=== PATIENT | female | born 1970 | race American Indian/Alaskan Native ===

== ENCOUNTER → 2016-09-08 | Outpatient (CLI) | payer OTHER ==
--- NOTE | 2016-09-08 13:52 | CR ---
EXAMINATION: Right ankle HISTORY: Hardware COMPARISON: 05/21/2016 TECHNIQUE: 3 views FINDINGS/IMPRESSION: There is stable screw and plate hardware fixation of the distal fibula with 2 s crews fixating the medial malleolus. Partially visualized intramedullary doris hardware is noted withi n the tibia. Overall position and alignment appear unchanged. The remaining osseous structures and j oint spaces appear preserved.
--- NOTE | 2016-09-08 13:53 | CR ---
EXAMINATION: Right tibia and fibula HISTORY: Fracture COMPARISON: 05/21/2016 TECHNIQUE: 2 views FINDINGS/IMPRESSION: There is an intramedullary doris noted fixating a well-healed tibial fracture. An kle hardware is again demonstrated, unchanged. The remaining osseous structures and joint spaces gracie ear normal.
== END ==
LOC: MW.CHORTHO 07:51
PROVIDERS: ATTEND Orthopaedic Surgery
DX: S82.202A Unspecified fracture of shaft of left tibia, initial encounter for closed fracture (principal); Z96.7 Presence of other bone and tendon implants; Z87.81 Personal history of (healed) traumatic fracture
CPT/HCPCS: 73590-26-RT; 73590-RT; 73610-26-RT; 73610-RT

== ENCOUNTER 2017-04-15 06:29 | Day surgery (SDC) | payer OTHER ==
[~2017-04-15 06:29] MED LIST: Lactated Ringers 1,000 ML IV SCH
[2017-04-15] MEDS ORDERED: Midazolam 1 MG/ML 2 ML SDV ONE (06:59)
[2017-04-15] MEDS ORDERED: Propofol 200 MG/20 ML SDV ONE (06:59)
[2017-04-15] MEDS ORDERED: fentaNYL 100 MCG/2 ML SDV ONE ×2 (06:59→08:44)
[2017-04-15] MEDS ORDERED: Ondansetron 4 MG/2 ML SDV ONE (07:01)
[2017-04-15] MEDS ORDERED: Dexamethasone 4 MG/ML 5 ML MDV ONE (07:01)
[2017-04-15] MEDS ORDERED: Bupivacaine 0.25% 10 ML SDV ONE (07:20)
--- NOTE | 2017-04-15 07:56 | PCM.PREANE ---
Preanesthetic Assessment - Anesthesia/Transfusion/Family Hx Anesthesia History: Prior Anesthesia Without Reaction Family History of Anesthesia Reaction: No Transfusion History: No Prior Transfusion(s) - Review of Systems General: Other (pain in area of hardware removal) Pulmonary: No Symptoms Cardiovascular: Other (HTN; hyperlipidemia) Gastrointestinal: No Symptoms Neurological: Other (painn in right leg) Other: Reports: None - Physical Assessment NPO Status Date: 04/14/17 NPO Status Time: 23:00 O2 Sat by Pulse Oximetry: 96 Respiratory Rate: 16 Vital Signs: Last Vital Signs Temp 97.5 F 04/15/17 07:05 Pulse 77 04/15/17 07:05 Resp 16 04/15/17 07:05 BP 123/82 04/15/17 07:05 Pulse Ox 96 04/15/17 07:05 Height: 4 ft 10 in Weight: 115 lb ASA Class: 2 Mental Status: Alert & Oriented x3 Airway Class: Mallampati = 1 Dentition: Reports: Normal Dentition Thyro-Mental Finger Breadths: 3 Mouth Opening Finger Breadths: 3 ROM/Head Extension: Full Lungs: Clear to Auscultation, Normal Respiratory Effort Cardiovascular: Regular Rate, Regular Rhythm, No Murmurs - Allergies Allergies/Adverse Reactions: Allergies Allergy/AdvReac Type Severity Reaction Status Date / Time No Known Allergies Allergy Verified 04/13/17 14:06 - Blood Blood Available: No Product(s) Available: None - Anesthesia Plan Pre-Op Medication Ordered: None - Acknowledgements Anesthesia Type Planned: General Anesthesia (LMA) Pt an Appropriate Candidate for the Planned Anesthesia: Yes Alternatives and Risks of Anesthesia Discussed w Pt/Guardian: Yes Pt/Guardian Understands and Agrees with Anesthesia Plan: Yes PreAnesthesia Questionnaire HEENT History: Reports: None Other HEENT History: wears glasses, has 3 upper dental implants Cardiovascular History: Reports: High Cholesterol, Hypertension Respiratory History: Reports: None Gastrointestinal History: Reports: None Other Genitourinary History: kidney infection [employer]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: Musculoskeletal History: Reports: Fracture Other Musculoskeletal History: left arm Neurological History: Reports: None Psychiatric History: Reports: None Endocrine/Metabolic History: Reports: None Hematologic History: Reports: None Immunologic History: Reports: None Oncologic (Cancer) History: Reports: None Dermatologic History: Reports: None - Infectious Disease History Infectious Disease History: Reports: None - Past Surgical History Head Surgeries/Procedures: Reports: None HEENT Surgical History: Reports: Tonsillectomy GI Surgical History: Reports: Appendectomy, Cholecystectomy Other GI Surgeries/Procedures: colon resection for bowel obstruction Female Surgical History: Reports: Section, Hysterectomy Other Female Surgeries/Procedures: hx multiple laparoscopies; hysterectomy 2008 Musculoskeletal Surgical History: Reports: ORIF Other Musculoskeletal Surgeries/Procedures:: right ankle (has hardware) - SUBSTANCE USE Smoking Status *Q: Never Smoker Tobacco Use Within Last Twelve Months: No Second Hand Smoke Exposure: No Days Per Week of Alcohol Use: 0 Number of Drinks Per Day: 2 Total Drinks Per Week: 0 Recreational Drug Use History: No - HOME MEDS Home Medications: Home Meds Estradiol [Vagifem] 10 mcg VAG ASDIRECTED 04/13/17 [History] Estrogens, Conjugated [Premarin] 0.625 mg PO DAILY 04/13/17 [History] Hydrocortisone [Hydrocortisone 2.5% Crm] 1 dose TOP ASDIRECTED PRN 04/13/17 [ History] Simvastatin [Zocor] 1 mg PO DAILY 04/13/17 [History] Water Pill 1 tab PO 04/13/17 [History] - CURRENT (IN HOUSE) MEDS Current Meds: Current Medications Hydrocodone Bitart/Acetaminophen ([place] 325-5 Mg) 1 - 2 tab PO Q4H PRN PRN Reason: Pain Fentanyl (Sublimaze) 50 mcg IVPUSH Q5M PRN PRN Reason: Pain (moderate 4-6) Stop: 04/15/17 10:00 Cefazolin Sodium/Dextrose 1 gm (/ Premix) 50 mls @ 100 mls/hr IV ONCALL EBENEZER Lactated Ringer's (Ringers, Lactated) 1,000 mls @ 100 mls/hr IV ASDIRECTED EBENEZER Last Admin: 04/15/17 07:05 Dose: 100 mls/hr Discontinued Medications Bupivacaine HCl (Sensorcaine-Mpf 0.25%) Confirm Administered Dose 20 ml .ROUTE .STK-MED ONE Stop: 04/15/17 07:21 Dexamethasone (Dexamethasone) Confirm Administered Dose 20 mg .ROUTE .STK-MED ONE Stop: 04/15/17 07:02 Fentanyl (Sublimaze) Confirm Administered Dose 100 mcg .ROUTE .STK-MED ONE Stop: 04/15/17 07:00 Cefazolin Sodium/Dextrose (Ancef) Confirm Administered Dose 50 mls @ as directed .ROUTE .STK-MED ONE Stop: 04/15/17 07:26 Lidocaine HCl (Xylocaine-Mpf 1%) Confirm Administered Dose 5 ml .ROUTE .STK-MED ONE Stop: 04/15/17 07:02 Midazolam HCl (Versed 1 Mg/Ml) Confirm Administered Dose 2 mg .ROUTE .STK-MED ONE Stop: 04/15/17 07:00 Ondansetron HCl (Zofran) Confirm Administered Dose 4 mg .ROUTE .STK-MED ONE Stop: 04/15/17 07:02 Propofol (Diprivan 20 Ml) Confirm Administered Dose 200 mg .ROUTE .STK-MED ONE Stop: 04/15/17 07:00
[2017-04-15] MEDS ORDERED: Acetaminophen/HYDROcodone 325-5 MG Tab PO PRN (08:00)
[2017-04-15] MEDS ORDERED: ceFAZolin 1 GM in Premix Bag 1 BAG IV SCH (08:00)
[2017-04-15] MEDS ORDERED: Ketorolac 30 MG/ML SDV ONE (08:45)
--- NOTE | 2017-04-15 09:03 | PCM.OPNOTE ---
- General Post-Op/Procedure Note Date of Surgery/Procedure: 04/15/17 Operative Procedure(s): HWR R ankle Post-Op Diagnosis: painful retained HW R ankle Anesthesia Technique: General LMA Primary Surgeon: Adrienne Gambino Media Specialist: Heidi Briggs in mLs: 5 Condition: Good Free Text/Narrative:: tt=31 min #[id number]
[2017-04-15] MEDS: fentaNYL 100 MCG/2 ML SDV IVPUSH PRN ×2 (09:16→09:22)
--- NOTE | 2017-04-15 10:05 | PCM.POSTAN ---
POST ANESTHESIA ASSESSMENT - MENTAL STATUS Mental Status: Alert, Oriented - RESPIRATORY Respiratory Status: Respiratory Rate WNL, Airway Patent, O2 Saturation Stable - CARDIOVASCULAR CV Status: Pulse Rate WNL, Blood Pressure Stable - GASTROINTESTINAL GI Status: No Symptoms - PAIN Pain Score: 2 - POST OP HYDRATION Hydration Status: Adequate & Stable - OBSERVATIONS Free Text/Narrative:: no anesthesia problems
--- NOTE | 2017-04-15 10:24 | OR ---
SURGEON: Adrienne Gambino MD DATE OF PROCEDURE: 04/15/2017 PREOPERATIVE DIAGNOSIS: Painful retained hardware, right ankle. POSTOPERATIVE DIAGNOSIS: Painful retained hardware, right ankle. PROCEDURE: Hardware removal, right ankle, deep implant. BOTTOM FINISHER: Heidi Briggs PA-C. ANESTHESIA: General. ESTIMATED BLOOD LOSS: 5 mL. TOURNIQUET TIME: 31 minutes. COMPLICATIONS: None. DVT PROPHYLAXIS: Not indicated. IMPLANTS USED: None. BRIEF HISTORY: Radha is a 47-year-old female, who underwent open reduction and internal fixation of a right ankle fracture along with a right tibial IM rodding in the past. She healed the fractures well, however, continued to be bothered by pain along the hardware in the ankle. Due to her lack of response to conservative treatment, I did recommend surgical intervention. The risks and goals of procedure were discussed with the patient and were documented preoperatively. She agreed to proceed. DESCRIPTION OF PROCEDURE: The patient was properly identified and brought to the operating room. She was brought to the operating room, placed on the operating room table in supine position. General anesthesia was administered. After adequate anesthesia was obtained, a well-padded tourniquet was applied to the right lower extremity. The right lower extremity was then prepped in standard fashion using ChloraPrep solution. It was then sterilely draped. A time-out was performed to ensure correct site and procedure. Preoperative antibiotics were given. The surgical site had been marked preoperatively. The tourniquet was inflated to 250 mmHg. A lateral incision was made over the site of the previous incision. Subcutaneous tissues were dissected. The hardware was easily identifiable. Soft tissue was elevated from the plate and screws. The screws were then removed without difficulty along with the plate. A rongeur was used to remove the fibrinous tissue underlying the plate. The fracture appeared to be well healed. I then turned my attention to the medial side. The medial incision was made over the site of the previous incision. The screws were identified and both cannulated screws and washers were removed without difficulty. The distal interlocking screws were also removed. A separate incision was used to remove the most proximal interlocking screw. Final C-arm images confirmed removal of the hardware. The wounds were then copiously irrigated with saline solution. The deep tissues were closed with 0 Vicryl. The subcutaneous tissues were closed with 2-0 Monocryl and the skin was closed with lor. Xeroform gauze was placed over the wound and a bulky dressing was applied. The tourniquet was then deflated. She was awakened from her anesthetic and transferred back to the operating room cart. She was brought to recovery room in stable condition. All needle and sponge counts were correct. BI / LICO /[id number]
--- NOTE | 2017-04-15 12:11 | CR ---
EXAMINATION: Right ankle HISTORY: Hardware removal COMPARISON: 03/15/2017 TECHNIQUE: Single view FINDINGS/IMPRESSION: A possible operative control film demonstrates interval removal of distal fibula r screw and plate hardware. There is a persistent intramedullary doris within the tibia however the pre viously demonstrated medial malleolus and interlocking screws have been removed.
[2017-04-15 13:27] VITALS: BP 131/83
== END 2017-04-15 11:40 | disposition home or self-care (01) ==
LOC: MW.SDS 06:29
PROVIDERS: ATTEND Orthopaedic Surgery
DX: T84.84XA Pain due to internal orthopedic prosthetic devices, implants and grafts, initial encounter (principal); E78.00 Pure hypercholesterolemia, unspecified; I10 Essential (primary) hypertension; Z90.49 Acquired absence of other specified parts of digestive tract; Z90.710 Acquired absence of both cervix and uterus; Z98.890 Other specified postprocedural states; Z79.818 Long term (current) use of other agents affecting estrogen receptors and estrogen levels; Z79.899 Other long term (current) drug therapy; Z82.49 Family history of ischemic heart disease and other diseases of the circulatory system
CPT/HCPCS: 20680; 76000; A9270; J0690; J1100; J1885; J2250; J2405; J3010; J7120; 01480; 88300; J2704

== ENCOUNTER 2018-09-28 12:15 | Observation (INO) | payer BC, OTHER ==
[2018-09-28] MEDS ORDERED: Ondansetron 4 MG/2 ML SDV IVPUSH ONE (12:22)
[2018-09-28] MEDS ORDERED: Sodium Chloride 0.9% 1,000 ML IV ONE (12:22)
--- NOTE | 2018-09-28 12:28 | EDM.PDOC ---
ED HPI GENERAL MEDICAL PROBLEM - General Chief Complaint: Gastrointestinal Problem Stated Complaint: VOMITING Time Seen by Provider: 09/28/18 12:22 Source of Information: Reports: Patient History Limitations: Reports: No Limitations - History of Present Illness INITIAL COMMENTS - FREE TEXT/NARRATIVE: HISTORY AND PHYSICAL: History of present illness: Patient is a 48-year-old female who presents to the emergency room today with complaints of nausea, vomiting and generalized abdominal pain which started this morning. She reports this morning she woke up with her symptoms which have progressively gotten worse. States she had a loose stool this morning; no diarrhea. Patient denies any fever, chills, headache, change in vision, syncope or near syncope. Denies any chest pain, back pain, shortness of breath or cough. Denies any constipation or dysuria. Has not noted any blood in urine or stool. Patient has been eating and drinking appropriately. She states that she has had an appendectomy, cholecystectomy and hysterectomy. Denies any alcohol or drug abuse. Review of systems: As per history of present illness and below otherwise all systems reviewed and negative. Past medical history: As per history of present illness and as reviewed below otherwise noncontributory. Surgical history: As per history of present illness and as reviewed below otherwise noncontributory. Social history: See social history for further information Family history: As per history of present illness and as reviewed below otherwise noncontributory. Physical exam: General: Well-developed and well-nourished 48-year-old female. Alert and oriented. Nontoxic appearing and in no acute distress. HEENT: Atraumatic, normocephalic, pupils equal and reactive bilaterally, negative for conjunctival pallor or scleral icterus, mucous membranes moist, TMs normal bilaterally, throat clear, neck supple, nontender, trachea midline. No drooling or trismus noted. No meningeal signs. No hot potato voice noted. Lungs: Clear to auscultation, breath sounds equal bilaterally, chest nontender. Heart: S1S2, regular rate and rhythm without overt murmur Abdomen: Soft, nondistended, diffuse nonspecific tenderness in all 4 quadrants. Guarded. Negative for masses. Negative for costovertebral tenderness. Pelvis: Stable nontender. Genitourinary/Rectal: Deferred. Skin: Intact, warm, dry. No lesions or rashes noted. Extremities: Atraumatic, moves all extremities per self without difficulty or deficits, negative for cords or calf pain. Neurovascular unremarkable. Neuro: Awake, alert, oriented. Cranial nerves II through XII unremarkable. Cerebellum unremarkable. Motor and sensory unremarkable throughout. Exam nonfocal. Notes: Patient states she feels improvement after the IV fluids and indications. CT shows a small-bowel obstruction with a transition point at or near the small bowel anastomosis in the right lower quadrant. Labs and vital signs have been reviewed by me. I did share the CT results with the patient. She states that she is aware of previous obstructions due to a previous GI surgery (colon resection from SBO). She has had intermittent problems with this over the past one year. Stating "if I just keep my bowels loose usually doesn't cause any problems". Dr. Landin was consulted on this case. He is agreeable for keeping this patient for continued monitoring and observation. Patient is aware and agreeable to plan of care. Diagnostics: CBC, CMP, lipase, UA Therapeutics: IV fluid, Zofran Impression: Small Bowel Obstruction Dehydration Plan: Observation admission to Med/Surg Definitive disposition and diagnosis as appropriate pending reevaluation and review of above. legs/stomach Pain Score (Numeric/FACES): 10 - Related Data Allergies Allergy/AdvReac Type Severity Reaction Status Date / Time No Known Allergies Allergy Verified 09/28/18 12:20 Home Meds: Home Meds Estradiol [Vagifem] 10 mcg VAG ASDIRECTED 04/13/17 [History] Estrogens, Conjugated [Premarin] 0.625 mg PO DAILY 04/13/17 [History] Hydrocortisone [Hydrocortisone 2.5% Crm] 1 dose TOP ASDIRECTED PRN 04/13/17 [ History] Simvastatin [Zocor] 40 mg PO DAILY 04/13/17 [History] Phenazopyridine HCl [Pyridium] 200 mg PO ASDIRECTED PRN 03/25/18 [History] hydrOXYzine pamoate [Hydroxyzine Pamoate] 50 mg PO BEDTIME PRN 03/25/18 [History ] hydroCHLOROthiazide [Hydrochlorothiazide] 25 mg PO DAILY 03/25/18 [History] Acetaminophen/HYDROcodone [[place] 325-5 MG] 1 - 2 tab PO Q4H PRN #60 tablet 03/30 [Rx] Past Medical History HEENT History: Reports: Other (See Below) Other HEENT History: wears glasses, has 3 upper dental implants Cardiovascular History: Reports: High Cholesterol, Hypertension Respiratory History: Reports: None Gastrointestinal History: Reports: Bowel Obstruction Other Genitourinary History: kidney infection 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: Musculoskeletal History: Reports: Fracture Other Musculoskeletal History: left arm Neurological History: Reports: None Psychiatric History: Reports: None Endocrine/Metabolic History: Reports: None Hematologic History: Reports: None Immunologic History: Reports: None Oncologic (Cancer) History: Reports: None Dermatologic History: Reports: None - Infectious Disease History Infectious Disease History: Reports: None - Past Surgical History Head Surgeries/Procedures: Reports: None HEENT Surgical History: Reports: Tonsillectomy GI Surgical History: Reports: Appendectomy, Cholecystectomy, Colon Other GI Surgeries/Procedures: colon resection for bowel obstruction Female Surgical History: Reports: Section, Hysterectomy Other Female Surgeries/Procedures: hx multiple laparoscopies; hysterectomy 2007 Musculoskeletal Surgical History: Reports: ORIF Other Musculoskeletal Surgeries/Procedures:: right ankle (has hardware) Social & Family History - Family History Family Medical History: Noncontributory HEENT: Reports: Otitis Media Cardiac: Reports: CAD OBGYN: Reports: Endometriosis Musculoskeletal: Reports: Osteoporosis Endocrine/Metabolic: Reports: Diabetes, Type I, Osteoporosis, Other (See Below) Other Endocrine/Metabolic Family History: DM type unknown Oncologic: Reports: Other (See Below) Other Oncologic Family History: throat - Tobacco Use Smoking Status *Q: Never Smoker - Caffeine Use Caffeine Use: Reports: Coffee - Recreational Drug Use Recreational Drug Use: No ED ROS GENERAL - Review of Systems Review Of Systems: ROS reveals no pertinent complaints other than HPI. ED EXAM, GI/ABD - Physical Exam Exam: See Below (See dictation) Course - Vital Signs Last Recorded V/S: Last Vital Signs Temp 97.9 F 09/28/18 14:38 Pulse 86 09/28/18 14:38 Resp 21 H 09/28/18 12:46 BP 117/62 09/28/18 14:38 Pulse Ox 96 09/28/18 14:38 - Orders/Labs/Meds Orders: Active Orders 24 hr Category Date Time Status Admission Status [Patient Status] [ADT] Stat ADT 09/28/18 15:02 Active Sodium Chloride 0.9% [Normal Saline] 1,000 ml Med 09/28/18 13:09 Active IV STAT Medication Orders Sodium Chloride (Normal Saline) 1,000 mls @ 150 mls/hr IV STAT ONE Stop: 09/28/18 19:48 Last Admin: 09/28/18 14:50 Dose: 150 mls/hr Admin: 09/28/18 14:43 Dose: Not Given Labs: Laboratory Tests 09/28/18 09/28/18 09/28/18 Range/Units 12:25 12:25 14:19 WBC 17.92 H (4.0-11.0) K/uL RBC 5.18 (4.30-5.90) M/uL Hgb 16.2 H (12.0-16.0) g/dL Hct 46.6 H (36.0-46.0) % MCV 90.0 (80.0-98.0) fL MCH 31.3 (27.0-32.0) pg MCHC 34.8 (31.0-37.0) g/dL RDW Std Deviation 46.6 (28.0-62.0) fl RDW Coeff of Kelvin 14 (11.0-15.0) % Plt Count 586 H (150-400) K/uL MPV 9.90 (7.40-12.00) fL Neut % (Auto) 77.4 (48.0-80.0) % Lymph % (Auto) 18.7 (16.0-40.0) % Addison % (Auto) 3.5 (0.0-15.0) % Eos % (Auto) 0.2 (0.0-7.0) % Baso % (Auto) 0.2 (0.0-1.5) % Neut # (Auto) 13.9 H (1.4-5.7) K/uL Lymph # (Auto) 3.4 H (0.6-2.4) K/uL Addison # (Auto) 0.6 (0.0-0.8) K/uL Eos # (Auto) 0.0 (0.0-0.7) K/uL Baso # (Auto) 0.0 (0.0-0.1) K/uL Nucleated RBC % 0.0 /100WBC Nucleated RBCs # 0 K/uL Sodium 134 L (136-145) mmol/L Potassium 3.6 (3.5-5.1) mmol/L Chloride 94 L (98-107) mmol/L Carbon Dioxide 18.1 L (21.0-32.0) mmol/L BUN 23 H (7.0-18.0) mg/dL Creatinine 1.2 H (0.6-1.0) mg/dL Est Cr Clr Drug Dosing 40.29 mL/min Estimated GFR (MDRD) 47.6 ml/min Glucose 187 H (74-106) mg/dL Calcium 10.5 H (8.5-10.1) mg/dL Total Bilirubin 0.5 (0.2-1.0) mg/dL AST 22 (15-37) IU/L ALT 24 (14-63) IU/L Alkaline Phosphatase 79 (46-116) U/L Total Protein 8.4 H (6.4-8.2) g/dL Albumin 3.9 (3.4-5.0) g/dL Globulin 4.5 H (2.6-4.0) g/dL Albumin/Globulin Ratio 0.9 (0.9-1.6) Lipase 146 (73-393) U/L Urine Color YELLOW Urine Appearance SLT CLOUDY Urine pH 7.0 (5.0-8.0) Ur Specific [place] 1.015 (1.001-1.035) Urine Protein NEGATIVE (NEGATIVE) mg/dL Urine Glucose (UA) NEGATIVE (NEGATIVE) mg/dL Urine Ketones >=80 (NEGATIVE) mg/dL Urine Occult Blood NEGATIVE (NEGATIVE) Urine Nitrite NEGATIVE (NEGATIVE) Urine Bilirubin NEGATIVE (NEGATIVE) Urine Urobilinogen 0.2 (<2.0) EU/dL Ur Leukocyte Esterase NEGATIVE (NEGATIVE) Meds: Medications Generic Name Dose Route Start Last Admin Trade Name Freq PRN Reason Stop Dose Admin Sodium Chloride 1,000 mls @ 150 mls/hr 09/28/18 13:09 09/28/18 14:50 Normal Saline IV 09/28/18 19:48 150 mls/hr STAT ONE Administration Discontinued Medications Generic Name Dose Route Start Last Admin Trade Name Freq PRN Reason Stop Dose Admin Sodium Chloride 1,000 mls @ 999 mls/hr 09/28/18 12:22 09/28/18 12:32 Normal Saline IV 09/28/18 13:22 999 mls/hr STAT ONE Administration Iopamidol 60 ml 09/28/18 13:35 06/05/19 13:39 Isovue Multipack-370 (76%) IVPUSH 09/28/18 13:36 60 ml ONETIME STA Administration Ketorolac Tromethamine 30 mg 09/28/18 13:01 09/28/18 13:06 Toradol IVPUSH 09/28/18 13:02 30 mg ONETIME ONE Administration Ondansetron HCl 4 mg 09/28/18 12:22 09/28/18 12:32 Zofran IVPUSH 09/28/18 12:23 4 mg ONETIME ONE Administration Departure - Departure Time of Disposition: 15:08 Disposition: Refer to Observation Clinical Impression: Small bowel obstruction, Dehydration - Discharge Information Referrals: PCP,None [Primary Care Provider] - Forms: ED Department Discharge - My Orders Last 24 Hours: My Active Orders 09/28/18 13:09 Sodium Chloride 0.9% [Normal Saline] 1,000 ml IV STAT 09/28/18 15:02 Admission Status [Patient Status] [ADT] Stat - Assessment/Plan Last 24 Hours: My Active Orders 09/28/18 13:09 Sodium Chloride 0.9% [Normal Saline] 1,000 ml IV STAT 09/28/18 15:02 Admission Status [Patient Status] [ADT] Stat
[2018-09-28] MEDS ORDERED: Ketorolac 30 MG/ML SDV IVPUSH ONE (13:01)
[2018-09-28] MEDS ORDERED: Iopamidol 755 MG/ML 500 ML Multipack Bottle IVPUSH STA (13:35)
[2018-09-28] MEDS: Sodium Chloride 0.9% 1,000 ML IV ONE ×2 (14:43→14:50)
--- NOTE | 2018-09-28 14:46 | CT ---
INDICATION: Abdominal pain. TECHNIQUE: CT abdomen and pelvis without contrast. COMPARISON: December 15, 2014. FINDINGS: Lower chest: Unremarkable. Liver: Normal in size and attenuation. No masses. Gallbladder and bile ducts: Status post cholecystectomy. Pancreas: Unremarkable. No mass or inflammation. Spleen: Normal in size. No masses. Adrenal glands: Normal in size. No nodules. Kidneys: Normal in size. No masses, stones, or hydronephrosis. GI tract: A small bowel obstruction is present with bowel loops dilated up to 4.5 cm. Transition point appears to be at or near the small bowel anastomosis in the right lower quadrant. Anastomotic stricture or adhesive disease are suspected as the cause for obstruction. Remainder of the GI tract is normal in caliber and appearance. Vasculature: Unremarkable. Lymph nodes: No lymphadenopathy. Abdominal wall/Omentum/Peritoneum: Unremarkable. No sign of mass or infiltration. No free air or significant free fluid. Pelvis: Unremarkable. No pelvic masses. Bones: Unremarkable for age. IMPRESSION: Small-bowel obstruction with a transition point at or near the small bowel anastomosis in the right lower quadrant. Please note that all CT scans at this facility use dose modulation, iterative reconstruction, and/or weight-based dosing when appropriate to reduce radiation dose to as low as reasonably achievable. Dictated by Malachi Khan MD @ Sep 28 2018 2:36PM Signed by Dr. Malachi Khan @ Sep 28 2018 2:44PM
[2018-09-28] MEDS ORDERED: Ondansetron 4 MG/2 ML SDV IVPUSH PRN (15:21)
[2018-09-28] MEDS ORDERED: Ketorolac 30 MG/ML SDV IV PRN (15:21)
--- NOTE | 2018-09-28 15:38 | PCM.HP ---
H&P History of Present Illness - General Date of Service: 09/28/18 Admit Problem/Dx: Admission Diagnosis/Problem Admission Diagnosis/Problem Small bowel obstruction - History of Present Illness Initial Comments - Free Text/Narative: Radha Dickey is a 48 y/o female with previous history of colectomy, cholecystectomy and hysterectomy approximately 8-10 years ago. States that she has had chronic abdominal pain that last for a few minutes and then goes away. However, this morning she woke up with intense periumbilical pain, nausea and vomiting. Pain rated 10/10. No hematemesis. Has been able to take PO intake prior to today. In addition, has been having regular bowel movements up until today when she had a loose bowel movement. Able to pass gas. In the ER, CT abdomen showed a small bowel obstruction at the junction of the small bowel anastomosis. [place] is rated 1/10 after administration of toradol. No nausea or vomiting since in the ER. legs/stomach Pain Score (Numeric/FACES): 10 - Related Data Allergies/Adverse Reactions: Allergies Allergy/AdvReac Type Severity Reaction Status Date / Time No Known Allergies Allergy Verified 09/28/18 12:20 Home Medications: Home Meds Estradiol [Vagifem] 10 mcg VAG ASDIRECTED 04/13/17 [History] Estrogens, Conjugated [Premarin] 0.625 mg PO DAILY 04/13/17 [History] Hydrocortisone [Hydrocortisone 2.5% Crm] 1 dose TOP ASDIRECTED PRN 04/13/17 [ History] Simvastatin [Zocor] 40 mg PO DAILY 04/13/17 [History] Phenazopyridine HCl [Pyridium] 200 mg PO ASDIRECTED PRN 03/25/18 [History] hydrOXYzine pamoate [Hydroxyzine Pamoate] 50 mg PO BEDTIME PRN 03/25/18 [History ] hydroCHLOROthiazide [Hydrochlorothiazide] 25 mg PO DAILY 03/25/18 [History] Acetaminophen/HYDROcodone [[place] 325-5 MG] 1 - 2 tab PO Q4H PRN #60 tablet 03/30 [Rx] Past Medical History HEENT History: Reports: Other (See Below) Other HEENT History: wears glasses, has 3 upper dental implants Cardiovascular History: Reports: High Cholesterol, Hypertension Respiratory History: Reports: None Gastrointestinal History: Reports: Bowel Obstruction Other Genitourinary History: kidney infection 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: Musculoskeletal History: Reports: Fracture Other Musculoskeletal History: left arm Neurological History: Reports: None Psychiatric History: Reports: None Endocrine/Metabolic History: Reports: None Hematologic History: Reports: None Immunologic History: Reports: None Oncologic (Cancer) History: Reports: None Dermatologic History: Reports: None - Infectious Disease History Infectious Disease History: Reports: None - Past Surgical History Head Surgeries/Procedures: Reports: None HEENT Surgical History: Reports: Tonsillectomy GI Surgical History: Reports: Appendectomy, Cholecystectomy, Colon Other GI Surgeries/Procedures: colon resection for bowel obstruction Female Surgical History: Reports: Section, Hysterectomy Other Female Surgeries/Procedures: hx multiple laparoscopies; hysterectomy 2008 Musculoskeletal Surgical History: Reports: ORIF Other Musculoskeletal Surgeries/Procedures:: right ankle (has hardware) Social & Family History - Family History Family Medical History: Noncontributory HEENT: Reports: Otitis Media Cardiac: Reports: CAD OBGYN: Reports: Endometriosis Musculoskeletal: Reports: Osteoporosis Endocrine/Metabolic: Reports: Diabetes, Type I, Osteoporosis, Other (See Below) Other Endocrine/Metabolic Family History: DM type unknown Oncologic: Reports: Other (See Below) Other Oncologic Family History: throat - Tobacco Use Smoking Status *Q: Never Smoker - Caffeine Use Caffeine Use: Reports: Coffee - Recreational Drug Use Recreational Drug Use: No H&P Review of Systems - Review of Systems: Review Of Systems: ROS reveals no pertinent complaints other than HPI. Exam - Exam Exam: See Below - Vital Signs Vital Signs: Last Vital Signs Temp 36.6 C 09/28/18 14:38 Pulse 86 09/28/18 14:38 Resp 21 H 09/28/18 12:46 BP 117/62 09/28/18 14:38 Pulse Ox 96 09/28/18 14:38 Weight: 54.431 kg - Exam General: Alert, Oriented, Cooperative, Other (no acute distress laying on bed with family in room.) HEENT: Conjunctiva Clear, Mucosa Moist & [place] Lungs: Clear to Auscultation, Normal Respiratory Effort. No: Crackles, Wheezing Cardiovascular: Regular Rate, Regular Rhythm GI/Abdominal Exam: Other (hypoactive bowel sounds, tympanic with mild periumbilical, epigastric pain. No rebound.) Extremities: Normal Inspection, No Pedal Edema Skin: Warm, Dry - Patient Data Lab Results Last 24 hrs: Laboratory Results - last 24 hr 09/28/18 09/28/18 09/28/18 Range/Units 12:25 12:25 14:19 WBC 17.92 H (4.0-11.0) K/uL RBC 5.18 (4.30-5.90) M/uL Hgb 16.2 H (12.0-16.0) g/dL Hct 46.6 H (36.0-46.0) % MCV 90.0 (80.0-98.0) fL MCH 31.3 (27.0-32.0) pg MCHC 34.8 (31.0-37.0) g/dL RDW Std Deviation 46.6 (28.0-62.0) fl RDW Coeff of Kelvin 14 (11.0-15.0) % Plt Count 586 H (150-400) K/uL MPV 9.90 (7.40-12.00) fL Neut % (Auto) 77.4 (48.0-80.0) % Lymph % (Auto) 18.7 (16.0-40.0) % [place] % (Auto) 3.5 (0.0-15.0) % Eos % (Auto) 0.2 (0.0-7.0) % Baso % (Auto) 0.2 (0.0-1.5) % Neut # (Auto) 13.9 H (1.4-5.7) K/uL Lymph # (Auto) 3.4 H (0.6-2.4) K/uL [place] # (Auto) 0.6 (0.0-0.8) K/uL Eos # (Auto) 0.0 (0.0-0.7) K/uL Baso # (Auto) 0.0 (0.0-0.1) K/uL Nucleated RBC % 0.0 /100WBC Nucleated RBCs # 0 K/uL Sodium 134 L (136-145) mmol/L Potassium 3.6 (3.5-5.1) mmol/L Chloride 94 L (98-107) mmol/L Carbon Dioxide 18.1 L (21.0-32.0) mmol/L BUN 23 H (7.0-18.0) mg/dL Creatinine 1.2 H (0.6-1.0) mg/dL Est Cr Clr Drug Dosing 40.29 mL/min Estimated GFR (MDRD) 47.6 ml/min Glucose 187 H (74-106) mg/dL Calcium 10.5 H (8.5-10.1) mg/dL Total Bilirubin 0.5 (0.2-1.0) mg/dL AST 22 (15-37) IU/L ALT 24 (14-63) IU/L Alkaline Phosphatase 79 (46-116) U/L Total Protein 8.4 H (6.4-8.2) g/dL Albumin 3.9 (3.4-5.0) g/dL Globulin 4.5 H (2.6-4.0) g/dL Albumin/Globulin Ratio 0.9 (0.9-1.6) Lipase 146 (73-393) U/L Urine Color YELLOW Urine Appearance SLT CLOUDY Urine pH 7.0 (5.0-8.0) Ur Specific [employer] 1.015 (1.001-1.035) Urine Protein NEGATIVE (NEGATIVE) mg/dL Urine Glucose (UA) NEGATIVE (NEGATIVE) mg/dL Urine Ketones >=80 (NEGATIVE) mg/dL Urine Occult Blood NEGATIVE (NEGATIVE) Urine Nitrite NEGATIVE (NEGATIVE) Urine Bilirubin NEGATIVE (NEGATIVE) Urine Urobilinogen 0.2 (<2.0) EU/dL Ur Leukocyte Esterase NEGATIVE (NEGATIVE) Result Diagrams: 09/28/18 12:25 09/28/18 12:25 Problem List Initiated/Reviewed/Updated: Yes Orders Last 24hrs: Active Orders 24 hr Category Date Time Status Admission Status [Patient Status] [ADT] Stat ADT 09/28/18 15:02 Active Intake and Output [RC] QSHIFT Care 09/28/18 15:21 Ordered Oxygen Therapy [RC] PRN Care 09/28/18 15:21 Ordered Up ad Luis Alfredo [RC] ASDIRECTED Care 09/28/18 15:21 Ordered VTE/DVT Education [RC] PER UNIT ROUTINE Care 09/28/18 15:21 Ordered Vital Signs [RC] Q4H Care 09/28/18 15:21 Ordered Nothing per Oral Now Diet [DIET] Diet 09/28/18 Dinner Ordered MAGNESIUM [CHEM] Stat Lab 09/28/18 15:25 Ordered Enoxaparin [Lovenox] Med 09/28/18 15:30 Ordered 40 mg SUBCUT Q24H Ketorolac [Toradol] Med 09/28/18 15:21 Ordered 30 mg IV Q6H PRN Ondansetron [Zofran] Med 09/28/18 15:21 Ordered 4 mg IVPUSH Q4H PRN Sodium Chloride 0.9% [Normal Saline] 1,000 ml Med 09/28/18 13:09 Active IV STAT Resuscitation Status Routine Resus Stat 09/28/18 15:21 Ordered Medication Orders Enoxaparin Sodium (Lovenox) 40 mg SUBCUT Q24H EBENEZER Sodium Chloride (Normal Saline) 1,000 mls @ 150 mls/hr IV STAT ONE Stop: 09/28/18 19:48 Last Admin: 09/28/18 14:50 Dose: 150 mls/hr Admin: 09/28/18 14:43 Dose: Not Given Ketorolac Tromethamine (Toradol) 30 mg IV Q6H PRN PRN Reason: Pain (moderate 4-6) Ondansetron HCl (Zofran) 4 mg IVPUSH Q4H PRN PRN Reason: Nausea Assessment/Plan Comment:: A: 1. Small bowel obstruction 2. Nausea, vomiting due to above 3. Acute kidney injury 4. Leukocytosis 5. Erythrocytosis 6. Hypercalcemia P: 1. Admit as observation to the medical floor. 2. Vitals, I/O's per floor routine. 3. Activity: ad luis alfredo 4. Diet: NPO 5. DVT prophylaxis: Lovenox 6. Code Status: FULL CODE 1. Small bowel obstruction: NPO with maintenance IV fluids. Toradol IV for pain control. Zofran for nausea. Will consult general surgery. 2. Acute kidney injury likel 2/2 to dehydration. Will administer IV fluids and recheck kidney function. 3. Leukocytosis: likely reactive 2/2 pain and dehydration. No fevers. Will monitor for now. 4. Hypercalcemia: likely 2/2 dehydration. Will recheck after NS IV administration. Dispo:1-2 days
--- NOTE | 2018-09-28 17:18 | PCM.CONS ---
H&P History of Present Illness - General Date of Service: 09/28/18 Admit Problem/Dx: Admission Diagnosis/Problem Admission Diagnosis/Problem Small bowel obstruction Source of Information: Patient History Limitations: Reports: No Limitations - History of Present Illness Initial Comments - Free Text/Narative: Patient is a 48 year old female with a past medical history significant for SBO secondary to abdominal adhesions who presents with a one day history of sharp abdominal pain, nausea and vomiting. She has not been feeling well for the past month. She woke up this morning having abdominal cramping. After she got to work she started vomiting. She feels like she is having a SBO and so she came to the ER. She has had a previous hysterectomy, cholecystectomy, and partial colectomy. The colectomy was performed due to a previous bowel obstruction. She was given tramadol in the in ER and fluids with great relief in her symptoms. She denies any flatus or BM today. legs/stomach Pain Score (Numeric/FACES): 10 - Related Data Allergies/Adverse Reactions: Allergies Allergy/AdvReac Type Severity Reaction Status Date / Time No Known Allergies Allergy Verified 09/28/18 12:20 Home Medications: Home Meds Estradiol [Vagifem] 10 mcg VAG ASDIRECTED 04/13/17 [History] Estrogens, Conjugated [Premarin] 0.625 mg PO DAILY 04/13/17 [History] Hydrocortisone [Hydrocortisone 2.5% Crm] 1 dose TOP ASDIRECTED PRN 04/13/17 [ History] Simvastatin [Zocor] 40 mg PO DAILY 04/13/17 [History] Phenazopyridine HCl [Pyridium] 200 mg PO ASDIRECTED PRN 03/25/18 [History] hydrOXYzine pamoate [Hydroxyzine Pamoate] 50 mg PO BEDTIME PRN 03/25/18 [History ] hydroCHLOROthiazide [Hydrochlorothiazide] 25 mg PO DAILY 03/25/18 [History] Acetaminophen/HYDROcodone [[place] 325-5 MG] 1 - 2 tab PO Q4H PRN #60 tablet 03/30 [Rx] Past Medical History HEENT History: Reports: Other (See Below) Other HEENT History: wears glasses, has 3 upper dental implants Cardiovascular History: Reports: High Cholesterol, Hypertension Respiratory History: Reports: None Gastrointestinal History: Reports: Bowel Obstruction Other Genitourinary History: kidney infection 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: Musculoskeletal History: Reports: Fracture Other Musculoskeletal History: left arm Neurological History: Reports: None Psychiatric History: Reports: None Endocrine/Metabolic History: Reports: None Hematologic History: Reports: None Immunologic History: Reports: None Oncologic (Cancer) History: Reports: None Dermatologic History: Reports: None - Infectious Disease History Infectious Disease History: Reports: None - Past Surgical History Head Surgeries/Procedures: Reports: None HEENT Surgical History: Reports: Tonsillectomy GI Surgical History: Reports: Appendectomy, Cholecystectomy, Colon Other GI Surgeries/Procedures: colon resection for bowel obstruction Female Surgical History: Reports: Section, Hysterectomy Other Female Surgeries/Procedures: hx multiple laparoscopies; hysterectomy 2008 Musculoskeletal Surgical History: Reports: ORIF Other Musculoskeletal Surgeries/Procedures:: right ankle (has hardware) Social & Family History - Family History Family Medical History: Noncontributory HEENT: Reports: Otitis Media Cardiac: Reports: CAD OBGYN: Reports: Endometriosis Musculoskeletal: Reports: Osteoporosis Endocrine/Metabolic: Reports: Diabetes, Type I, Osteoporosis, Other (See Below) Other Endocrine/Metabolic Family History: DM type unknown Oncologic: Reports: Other (See Below) Other Oncologic Family History: throat - Tobacco Use Smoking Status *Q: Never Smoker - Caffeine Use Caffeine Use: Reports: Coffee - Recreational Drug Use Recreational Drug Use: No H&P Review of Systems - Review of Systems: Review Of Systems: ROS reveals no pertinent complaints other than HPI. Exam - Exam Exam: See Below - Vital Signs Vital Signs: Last Vital Signs Temp 36.6 C 09/28/18 14:38 Pulse 86 09/28/18 14:38 Resp 21 H 09/28/18 12:46 BP 117/62 09/28/18 14:38 Pulse Ox 96 09/28/18 14:38 Weight: 54.431 kg - Exam General: Alert, Oriented HEENT: Conjunctiva Clear, Mucosa Moist & [place], Posterior Pharynx Clear Neck: Supple, Trachea Midline Lungs: Clear to Auscultation, Normal Respiratory Effort Cardiovascular: Regular Rate, Regular Rhythm GI/Abdominal Exam: Soft, Non-Tender, Distended (mild ). No: Guarding, Rigid, Rebound, Tender Back Exam: Normal Inspection, Full Range of Motion Extremities: Normal Inspection, Normal Range of Motion - Patient Data Lab Results Last 24 hrs: Laboratory Results - last 24 hr 09/28/18 09/28/18 09/28/18 Range/Units 12:25 12:25 12:25 WBC 17.92 H (4.0-11.0) K/uL RBC 5.18 (4.30-5.90) M/uL Hgb 16.2 H (12.0-16.0) g/dL Hct 46.6 H (36.0-46.0) % MCV 90.0 (80.0-98.0) fL MCH 31.3 (27.0-32.0) pg MCHC 34.8 (31.0-37.0) g/dL RDW Std Deviation 46.6 (28.0-62.0) fl RDW Coeff of [place]vin 14 (11.0-15.0) % Plt Count 586 H (150-400) K/uL MPV 9.90 (7.40-12.00) fL Neut % (Auto) 77.4 (48.0-80.0) % Lymph % (Auto) 18.7 (16.0-40.0) % [place] % (Auto) 3.5 (0.0-15.0) % Eos % (Auto) 0.2 (0.0-7.0) % Baso % (Auto) 0.2 (0.0-1.5) % Neut # (Auto) 13.9 H (1.4-5.7) K/uL Lymph # (Auto) 3.4 H (0.6-2.4) K/uL [place] # (Auto) 0.6 (0.0-0.8) K/uL Eos # (Auto) 0.0 (0.0-0.7) K/uL Baso # (Auto) 0.0 (0.0-0.1) K/uL Nucleated RBC % 0.0 /100WBC Nucleated RBCs # 0 K/uL Sodium 134 L (136-145) mmol/L Potassium 3.6 (3.5-5.1) mmol/L Chloride 94 L (98-107) mmol/L Carbon Dioxide 18.1 L (21.0-32.0) mmol/L BUN 23 H (7.0-18.0) mg/dL Creatinine 1.2 H (0.6-1.0) mg/dL Est Cr Clr Drug Dosing 40.29 mL/min Estimated GFR (MDRD) 47.6 ml/min Glucose 187 H (74-106) mg/dL Calcium 10.5 H (8.5-10.1) mg/dL Magnesium 2.1 (1.8-2.4) mg/dL Total Bilirubin 0.5 (0.2-1.0) mg/dL AST 22 (15-37) IU/L ALT 24 (14-63) IU/L Alkaline Phosphatase 79 (46-116) U/L Total Protein 8.4 H (6.4-8.2) g/dL Albumin 3.9 (3.4-5.0) g/dL Globulin 4.5 H (2.6-4.0) g/dL Albumin/Globulin Ratio 0.9 (0.9-1.6) Lipase 146 (73-393) U/L Urine Color Urine Appearance Urine pH (5.0-8.0) Ur Specific [place] (1.001-1.035) Urine Protein (NEGATIVE) mg/dL Urine Glucose (UA) (NEGATIVE) mg/dL Urine Ketones (NEGATIVE) mg/dL Urine Occult Blood (NEGATIVE) Urine Nitrite (NEGATIVE) Urine Bilirubin (NEGATIVE) Urine Urobilinogen (<2.0) EU/dL Ur Leukocyte Esterase (NEGATIVE) 09/28/18 Range/Units 14:19 WBC (4.0-11.0) K/uL RBC (4.30-5.90) M/uL Hgb (12.0-16.0) g/dL Hct (36.0-46.0) % MCV (80.0-98.0) fL MCH (27.0-32.0) pg MCHC (31.0-37.0) g/dL RDW Std Deviation (28.0-62.0) fl RDW Coeff of [place]vin (11.0-15.0) % Plt Count (150-400) K/uL MPV (7.40-12.00) fL Neut % (Auto) (48.0-80.0) % Lymph % (Auto) (16.0-40.0) % [place] % (Auto) (0.0-15.0) % Eos % (Auto) (0.0-7.0) % Baso % (Auto) (0.0-1.5) % Neut # (Auto) (1.4-5.7) K/uL Lymph # (Auto) (0.6-2.4) K/uL [place] # (Auto) (0.0-0.8) K/uL Eos # (Auto) (0.0-0.7) K/uL Baso # (Auto) (0.0-0.1) K/uL Nucleated RBC % /100WBC Nucleated RBCs # K/uL Sodium (136-145) mmol/L Potassium (3.5-5.1) mmol/L Chloride (98-107) mmol/L Carbon Dioxide (21.0-32.0) mmol/L BUN (7.0-18.0) mg/dL Creatinine (0.6-1.0) mg/dL Est Cr Clr Drug Dosing mL/min Estimated GFR (MDRD) ml/min Glucose (74-106) mg/dL Calcium (8.5-10.1) mg/dL Magnesium (1.8-2.4) mg/dL Total Bilirubin (0.2-1.0) mg/dL AST (15-37) IU/L ALT (14-63) IU/L Alkaline Phosphatase (46-116) U/L Total Protein (6.4-8.2) g/dL Albumin (3.4-5.0) g/dL Globulin (2.6-4.0) g/dL Albumin/Globulin Ratio (0.9-1.6) Lipase (73-393) U/L Urine Color YELLOW Urine Appearance SLT CLOUDY Urine pH 7.0 (5.0-8.0) Ur Specific [place] 1.015 (1.001-1.035) Urine Protein NEGATIVE (NEGATIVE) mg/dL Urine Glucose (UA) NEGATIVE (NEGATIVE) mg/dL Urine Ketones >=80 (NEGATIVE) mg/dL Urine Occult Blood NEGATIVE (NEGATIVE) Urine Nitrite NEGATIVE (NEGATIVE) Urine Bilirubin NEGATIVE (NEGATIVE) Urine Urobilinogen 0.2 (<2.0) EU/dL Ur Leukocyte Esterase NEGATIVE (NEGATIVE) Result Diagrams: 09/28/18 12:25 09/28/18 12:25 Consult PN Assessment/Plan Procedures: Procedures ASSAY OF LIPASE (10/11/14) BREAST TOMOSYNTHESIS BI (02/16/18) COMPLETE CBC AUTOMATED (02/26/15) COMPLETE CBC W/AUTO DIFF WBC (10/11/14) COMPREHEN METABOLIC PANEL (10/11/14) CULTURE OTHR SPECIMN AEROBIC (02/13/15) CYSTOSCOPY AND TREATMENT (02/26/15) EMERGENCY DEPT VISIT (03/11/16) EMERGENCY DEPT VISIT (10/11/14) EMERGENCY DEPT VISIT (04/26/14) FLUOROSCOPE EXAM EXTENSIVE (03/11/16) FLUOROSCOPY <1 HR PHYS/QHP (03/30/18) GAIT TRAINING THERAPY (03/11/16) KNEE ARTHROSCOPY/SURGERY (03/30/18) METABOLIC PANEL TOTAL CA (02/26/15) MICROBE SUSCEPTIBLE NATE (04/03/15) OT EVALUATION (06/12/14) PT EVALUATION (03/11/16) REMOVAL OF SUPPORT IMPLANT (03/30/18) ROUTINE VENIPUNCTURE (02/26/15) SCR MAMMO BI INCL CAD (02/16/18) SMEAR WET [place] SAL[place]/INK (02/13/15) THER/PROPH/DIAG INJ IV PUSH (03/11/16) THERAPEUTIC ACTIVITIES (03/11/16) TREAT LOWER LEG FRACTURE (03/11/16) TREATMENT OF ANKLE FRACTURE (03/11/16) TX/PRO/DX INJ NEW DRUG ADDON (03/11/16) TX/PRO/DX INJ SAME DRUG PROSTHETIC AIDE (03/11/16) URINALYSIS AUTO W/SCOPE (10/11/14) URINE BACTERIA CULTURE (04/03/15) URINE CULTURE/COLONY COUNT (04/03/15) X-RAY EXAM KNEE 4 OR MORE (03/01/18) X-RAY EXAM OF ABDOMEN (10/11/14) X-RAY EXAM OF ANKLE (04/27/17) X-RAY EXAM OF FOREARM (04/26/14) X-RAY EXAM OF LOWER LEG (03/01/18) X-RAY EXAM OF WRIST (06/05/14) X-RAY EXAM OF WRIST (05/01/14) (1) Small bowel obstruction SNOMED Code(s): 924694050 Code(s): K56.609 - UNSP INTESTNL OBST, UNSP TO PARTIAL VERSUS COMPLETE OBST Current Visit: Yes Problem List Initiated/Reviewed/Updated: Yes Plan: Her vitals are stable. WBC is elevated at 17K. Her CT abdomen/pelvis shows a transition point at or near her previous anastomosis. Her CT from 2014 when she was admitted with a SBO showed the same. She is feeling quite well now and her abdomen is soft and nontender. Would keep NPO overnight with IVF replacement. No need for NG at this time. Repeat CBC in am. If doing well in am could consider clear liquid diet. Will continue to follow. She has never had a colonoscopy and will need one as an outpatient.
[2018-09-28] MEDS: Enoxaparin 40 MG/0.4 ML Syringe SUBCUT SCH (18:06)
[2018-09-28] MEDS: Sodium Chloride 0.9% 1,000 ML IV SCH (22:03)
[2018-09-29] MEDS: Sodium Chloride 0.9% 1,000 ML IV SCH (04:52)
[2018-09-29 06:01] LABS: CHLORIDE,CL 109 mmol/L (98-107); SODIUM,NA 139 mmol/L (136-145)
[2018-09-29] MEDS ORDERED: Sodium Chloride 0.9% with KCl 1,000 ML IV SCH (09:45)
[2018-09-29] MEDS ORDERED: cefTRIAXone 1 GM in Premix Bag 1 BAG IV SCH (09:45)
--- NOTE | 2018-09-29 12:34 | PCM.PN ---
- General Info Date of Service: 09/29/18 Subjective Update: No acute events overnight. Patient states that her abdominal pain has resolved and she is passing gas. No chest pain, dyspnea. She was complaining of some dysuria yesterday. - Patient Data Vitals - Most Recent: Last Vital Signs Temp 36.3 C 09/29/18 11:49 Pulse 72 09/29/18 11:49 Resp 14 09/29/18 11:49 BP 86/50 L 09/29/18 11:49 Pulse Ox 97 09/29/18 11:49 Weight - Most Recent: 56.245 kg I&O - Last 24 Hours: Intake & Output 09/28/18 09/29/18 09/29/18 22:59 06:59 14:59 Intake Total 870 Output Total 300 Balance 570 Lab Results Last 24 Hours: Laboratory Results - last 24 hr 09/28/18 09/28/18 09/28/18 Range/Units 12:25 12:25 12:25 WBC 17.92 H (4.0-11.0) K/uL RBC 5.18 (4.30-5.90) M/uL Hgb 16.2 H (12.0-16.0) g/dL Hct 46.6 H (36.0-46.0) % MCV 90.0 (80.0-98.0) fL MCH 31.3 (27.0-32.0) pg MCHC 34.8 (31.0-37.0) g/dL RDW Std Deviation 46.6 (28.0-62.0) fl RDW Coeff of Kelvin 14 (11.0-15.0) % Plt Count 586 H (150-400) K/uL MPV 9.90 (7.40-12.00) fL Neut % (Auto) 77.4 (48.0-80.0) % Lymph % (Auto) 18.7 (16.0-40.0) % Rhea % (Auto) 3.5 (0.0-15.0) % Eos % (Auto) 0.2 (0.0-7.0) % Baso % (Auto) 0.2 (0.0-1.5) % Neut # (Auto) 13.9 H (1.4-5.7) K/uL Lymph # (Auto) 3.4 H (0.6-2.4) K/uL Rhea # (Auto) 0.6 (0.0-0.8) K/uL Eos # (Auto) 0.0 (0.0-0.7) K/uL Baso # (Auto) 0.0 (0.0-0.1) K/uL Nucleated RBC % 0.0 /100WBC Nucleated RBCs # 0 K/uL Sodium 134 L (136-145) mmol/L Potassium 3.6 (3.5-5.1) mmol/L Chloride 94 L (98-107) mmol/L Carbon Dioxide 18.1 L (21.0-32.0) mmol/L BUN 23 H (7.0-18.0) mg/dL Creatinine 1.2 H (0.6-1.0) mg/dL Est Cr Clr Drug Dosing 40.29 mL/min Estimated GFR (MDRD) 47.6 ml/min Glucose 187 H (74-106) mg/dL Calcium 10.5 H (8.5-10.1) mg/dL Magnesium 2.1 (1.8-2.4) mg/dL Total Bilirubin 0.5 (0.2-1.0) mg/dL AST 22 (15-37) IU/L ALT 24 (14-63) IU/L Alkaline Phosphatase 79 (46-116) U/L Total Protein 8.4 H (6.4-8.2) g/dL Albumin 3.9 (3.4-5.0) g/dL Globulin 4.5 H (2.6-4.0) g/dL Albumin/Globulin Ratio 0.9 (0.9-1.6) Lipase 146 (73-393) U/L Urine Color Urine Appearance Urine pH (5.0-8.0) Ur Specific [place] (1.001-1.035) Urine Protein (NEGATIVE) mg/dL Urine Glucose (UA) (NEGATIVE) mg/dL Urine Ketones (NEGATIVE) mg/dL Urine Occult Blood (NEGATIVE) Urine Nitrite (NEGATIVE) Urine Bilirubin (NEGATIVE) Urine Urobilinogen (<2.0) EU/dL Ur Leukocyte Esterase (NEGATIVE) Urine RBC (0-2/HPF) Urine WBC (0-5/HPF) Ur Epithelial Cells (NONE-FEW) Urine Bacteria (NEGATIVE) Urine Mucus (NONE-MOD) 09/28/18 09/29/18 09/29/18 Range/Units 14:19 00:36 05:23 WBC 6.63 (4.0-11.0) K/uL RBC 3.67 L (4.30-5.90) M/uL Hgb 11.1 L (12.0-16.0) g/dL Hct 34.0 L (36.0-46.0) % MCV 92.6 (80.0-98.0) fL MCH 30.2 (27.0-32.0) pg MCHC 32.6 (31.0-37.0) g/dL RDW Std Deviation 49.0 (28.0-62.0) fl RDW Coeff of Kelvin 14 (11.0-15.0) % Plt Count 366 (150-400) K/uL MPV 9.40 (7.40-12.00) fL Neut % (Auto) 53.2 (48.0-80.0) % Lymph % (Auto) 38.9 (16.0-40.0) % Rhea % (Auto) 6.5 (0.0-15.0) % Eos % (Auto) 1.1 (0.0-7.0) % Baso % (Auto) 0.3 (0.0-1.5) % Neut # (Auto) 3.5 (1.4-5.7) K/uL Lymph # (Auto) 2.6 H (0.6-2.4) K/uL Rhea # (Auto) 0.4 (0.0-0.8) K/uL Eos # (Auto) 0.1 (0.0-0.7) K/uL Baso # (Auto) 0.0 (0.0-0.1) K/uL Nucleated RBC % 0.0 /100WBC Nucleated RBCs # 0 K/uL Sodium (136-145) mmol/L Potassium (3.5-5.1) mmol/L Chloride (98-107) mmol/L Carbon Dioxide (21.0-32.0) mmol/L BUN (7.0-18.0) mg/dL Creatinine (0.6-1.0) mg/dL Est Cr Clr Drug Dosing mL/min Estimated GFR (MDRD) ml/min Glucose (74-106) mg/dL Calcium (8.5-10.1) mg/dL Magnesium (1.8-2.4) mg/dL Total Bilirubin (0.2-1.0) mg/dL AST (15-37) IU/L ALT (14-63) IU/L Alkaline Phosphatase (46-116) U/L Total Protein (6.4-8.2) g/dL Albumin (3.4-5.0) g/dL Globulin (2.6-4.0) g/dL Albumin/Globulin Ratio (0.9-1.6) Lipase (73-393) U/L Urine Color YELLOW YELLOW Urine Appearance SLT CLOUDY CLEAR Urine pH 7.0 6.0 (5.0-8.0) Ur Specific [place] 1.015 >= 1.030 (1.001-1.035) Urine Protein NEGATIVE TRACE H (NEGATIVE) mg/dL Urine Glucose (UA) NEGATIVE NEGATIVE (NEGATIVE) mg/dL Urine Ketones >=80 40 H (NEGATIVE) mg/dL Urine Occult Blood NEGATIVE NEGATIVE (NEGATIVE) Urine Nitrite NEGATIVE NEGATIVE (NEGATIVE) Urine Bilirubin NEGATIVE MODERATE H (NEGATIVE) Urine Urobilinogen 0.2 0.2 (<2.0) EU/dL Ur Leukocyte Esterase NEGATIVE NEGATIVE (NEGATIVE) Urine RBC 0-2 (0-2/HPF) Urine WBC 25-30 (0-5/HPF) Ur Epithelial Cells MANY (NONE-FEW) Urine Bacteria FEW (NEGATIVE) Urine Mucus MODERATE (NONE-MOD) 09/29/18 Range/Units 05:23 WBC (4.0-11.0) K/uL RBC (4.30-5.90) M/uL Hgb (12.0-16.0) g/dL Hct (36.0-46.0) % MCV (80.0-98.0) fL MCH (27.0-32.0) pg MCHC (31.0-37.0) g/dL RDW Std Deviation (28.0-62.0) fl RDW Coeff of Kelvin (11.0-15.0) % Plt Count (150-400) K/uL MPV (7.40-12.00) fL Neut % (Auto) (48.0-80.0) % Lymph % (Auto) (16.0-40.0) % Rhea % (Auto) (0.0-15.0) % Eos % (Auto) (0.0-7.0) % Baso % (Auto) (0.0-1.5) % Neut # (Auto) (1.4-5.7) K/uL Lymph # (Auto) (0.6-2.4) K/uL Rhea # (Auto) (0.0-0.8) K/uL Eos # (Auto) (0.0-0.7) K/uL Baso # (Auto) (0.0-0.1) K/uL Nucleated RBC % /100WBC Nucleated RBCs # K/uL Sodium 139 (136-145) mmol/L Potassium 3.3 L (3.5-5.1) mmol/L Chloride 109 H (98-107) mmol/L Carbon Dioxide 21.4 (21.0-32.0) mmol/L BUN 17 (7.0-18.0) mg/dL Creatinine 0.7 (0.6-1.0) mg/dL Est Cr Clr Drug Dosing 69.06 mL/min Estimated GFR (MDRD) > 60.0 ml/min Glucose 91 (74-106) mg/dL Calcium 6.7 L (8.5-10.1) mg/dL Magnesium (1.8-2.4) mg/dL Total Bilirubin (0.2-1.0) mg/dL AST (15-37) IU/L ALT (14-63) IU/L Alkaline Phosphatase (46-116) U/L Total Protein (6.4-8.2) g/dL Albumin (3.4-5.0) g/dL Globulin (2.6-4.0) g/dL Albumin/Globulin Ratio (0.9-1.6) Lipase (73-393) U/L Urine Color Urine Appearance Urine pH (5.0-8.0) Ur Specific [place] (1.001-1.035) Urine Protein (NEGATIVE) mg/dL Urine Glucose (UA) (NEGATIVE) mg/dL Urine Ketones (NEGATIVE) mg/dL Urine Occult Blood (NEGATIVE) Urine Nitrite (NEGATIVE) Urine Bilirubin (NEGATIVE) Urine Urobilinogen (<2.0) EU/dL Ur Leukocyte Esterase (NEGATIVE) Urine RBC (0-2/HPF) Urine WBC (0-5/HPF) Ur Epithelial Cells (NONE-FEW) Urine Bacteria (NEGATIVE) Urine Mucus (NONE-MOD) Med Orders - Current: Current Medications Enoxaparin Sodium (Lovenox) 40 mg SUBCUT Q24H [facility] Last Admin: 09/28/18 18:06 Dose: 40 mg Ceftriaxone Sodium/Dextrose 1 (gm/ Premix) 50 mls @ 100 mls/hr IV Q24H [facility] Last Admin: 09/29/18 09:57 Dose: 100 mls/hr Potassium Chloride/Sodium Chloride (Normal Saline With 40 Meq Kcl) 1,000 mls @ 150 mls/hr IV ASDIRECTED [facility] Stop: 09/29/18 16:24 Last Admin: 09/29/18 11:15 Dose: 150 mls/hr Ketorolac Tromethamine (Toradol) 30 mg IV Q6H PRN PRN Reason: Pain (moderate 4-6) Last Admin: 09/28/18 22:17 Dose: 30 mg Ondansetron HCl (Zofran) 4 mg IVPUSH Q4H PRN PRN Reason: Nausea Discontinued Medications Sodium Chloride (Normal Saline) 1,000 mls @ 999 mls/hr IV STAT ONE Stop: 09/28/18 13:22 Last Admin: 09/28/18 12:32 Dose: 999 mls/hr Sodium Chloride (Normal Saline) 1,000 mls @ 150 mls/hr IV STAT ONE Stop: 09/28/18 19:48 Last Admin: 09/28/18 14:50 Dose: 150 mls/hr Sodium Chloride (Normal Saline) 1,000 mls @ 150 mls/hr IV ASDIRECTED [facility] Last Admin: 09/29/18 04:52 Dose: 150 mls/hr Iopamidol (Isovue Multipack-370 (76%)) 60 ml IVPUSH ONETIME STA Stop: 09/28/18 13:36 Last Admin: 09/28/18 13:39 Dose: 60 ml Ketorolac Tromethamine (Toradol) 30 mg IVPUSH ONETIME ONE Stop: 09/28/18 13:02 Last Admin: 09/28/18 13:06 Dose: 30 mg Ondansetron HCl (Zofran) 4 mg IVPUSH ONETIME ONE Stop: 09/28/18 12:23 Last Admin: 09/28/18 12:32 Dose: 4 mg - Exam General: Alert, Oriented, Cooperative, No Acute Distress Lungs: Clear to Auscultation, Normal Respiratory Effort Cardiovascular: Regular Rate, Regular Rhythm GI/Abdominal Exam: Other (hypoactive bowel sounds, non distended. Non tender, no rebound.) Extremities: Normal Inspection, No Pedal Edema - Problem List Review Problem List Initiated/Reviewed/Updated: Yes - My Orders Last 24 Hours: My Active Orders 09/28/18 15:21 Intake and Output [RC] Q12H Oxygen Therapy [RC] PRN Up ad Nasreen [RC] ASDIRECTED VTE/DVT Education [RC] PER UNIT ROUTINE Vital Signs [RC] Q4H Ketorolac [Toradol] 30 mg IV Q6H PRN Ondansetron [Zofran] 4 mg IVPUSH Q4H PRN Resuscitation Status Routine 09/28/18 15:30 Enoxaparin [Lovenox] 40 mg SUBCUT Q24H 09/28/18 15:59 Notify Provider Consults [RC] ASDIRECTED Consult to Physician [CONS] Stat 09/28/18 Dinner Nothing per Oral Now Diet [DIET] 09/29/18 Dinner Clear Liquid Diet [DIET] - Plan Plan:: A: 1. Small bowel obstruction, improving 2. Suspected UTI 3. Nausea, vomiting resolved 4. Acute kidney injury, resolved 5. Leukocytosis, resolved 6. Erythrocytosis, resolved 7. Hypercalcemia, resolved P: 1. Small bowel obstruction: will advance to clear liquid diet and advance as tolerated. Appreciate general surgery recs. Will continue with IV fluids for now until able to tolerate PO intake. 2. Suspected UTI. Started ceftriaxone. Dispo: likely DC tomorrow.
--- NOTE | 2018-09-29 13:13 | PCM.CONSN ---
- General Info Date of Service: 09/29/18 Subjective Update: Patient feels much better. Passing flatus last evening. Functional Status: Reports: Pain Controlled, Ambulating, Urinating - Review of Systems General: Reports: No Symptoms Gastrointestinal: Reports: No Symptoms - Patient Data Vitals - Most Recent: Last Vital Signs Temp 36.3 C 09/29/18 11:49 Pulse 72 09/29/18 11:49 Resp 14 09/29/18 11:49 BP 86/50 L 09/29/18 11:49 Pulse Ox 97 09/29/18 11:49 Weight - Most Recent: 56.245 kg I&O - Last 24 Hours: Intake & Output 09/28/18 09/29/18 09/29/18 22:59 06:59 14:59 Intake Total 870 Output Total 300 Balance 570 Lab Results Last 24 Hours: Laboratory Results - last 24 hr 09/28/18 09/28/18 09/29/18 Range/Units 12:25 14:19 00:36 WBC (4.0-11.0) K/uL RBC (4.30-5.90) M/uL Hgb (12.0-16.0) g/dL Hct (36.0-46.0) % MCV (80.0-98.0) fL MCH (27.0-32.0) pg MCHC (31.0-37.0) g/dL RDW Std Deviation (28.0-62.0) fl RDW Coeff of Kelvin (11.0-15.0) % Plt Count (150-400) K/uL MPV (7.40-12.00) fL Neut % (Auto) (48.0-80.0) % Lymph % (Auto) (16.0-40.0) % Wilkinson % (Auto) (0.0-15.0) % Eos % (Auto) (0.0-7.0) % Baso % (Auto) (0.0-1.5) % Neut # (Auto) (1.4-5.7) K/uL Lymph # (Auto) (0.6-2.4) K/uL [place]kinson # (Auto) (0.0-0.8) K/uL Eos # (Auto) (0.0-0.7) K/uL Baso # (Auto) (0.0-0.1) K/uL Nucleated RBC % /100WBC Nucleated RBCs # K/uL Sodium (136-145) mmol/L Potassium (3.5-5.1) mmol/L Chloride (98-107) mmol/L Carbon Dioxide (21.0-32.0) mmol/L BUN (7.0-18.0) mg/dL Creatinine (0.6-1.0) mg/dL Est Cr Clr Drug Dosing mL/min Estimated GFR (MDRD) ml/min Glucose (74-106) mg/dL Calcium (8.5-10.1) mg/dL Magnesium 2.1 (1.8-2.4) mg/dL Urine Color YELLOW YELLOW Urine Appearance SLT CLOUDY CLEAR Urine pH 7.0 6.0 (5.0-8.0) Ur Specific [place] 1.015 >= 1.030 (1.001-1.035) Urine Protein NEGATIVE TRACE H (NEGATIVE) mg/dL Urine Glucose (UA) NEGATIVE NEGATIVE (NEGATIVE) mg/dL Urine Ketones >=80 40 H (NEGATIVE) mg/dL Urine Occult Blood NEGATIVE NEGATIVE (NEGATIVE) Urine Nitrite NEGATIVE NEGATIVE (NEGATIVE) Urine Bilirubin NEGATIVE MODERATE H (NEGATIVE) Urine Urobilinogen 0.2 0.2 (<2.0) EU/dL Ur Leukocyte Esterase NEGATIVE NEGATIVE (NEGATIVE) Urine RBC 0-2 (0-2/HPF) Urine WBC 25-30 (0-5/HPF) Ur Epithelial Cells MANY (NONE-FEW) Urine Bacteria FEW (NEGATIVE) Urine Mucus MODERATE (NONE-MOD) 09/29/18 09/29/18 Range/Units 05:23 05:23 WBC 6.63 (4.0-11.0) K/uL RBC 3.67 L (4.30-5.90) M/uL Hgb 11.1 L (12.0-16.0) g/dL Hct 34.0 L (36.0-46.0) % MCV 92.6 (80.0-98.0) fL MCH 30.2 (27.0-32.0) pg MCHC 32.6 (31.0-37.0) g/dL RDW Std Deviation 49.0 (28.0-62.0) fl RDW Coeff of Kelvin 14 (11.0-15.0) % Plt Count 366 (150-400) K/uL MPV 9.40 (7.40-12.00) fL Neut % (Auto) 53.2 (48.0-80.0) % Lymph % (Auto) 38.9 (16.0-40.0) % [place] % (Auto) 6.5 (0.0-15.0) % Eos % (Auto) 1.1 (0.0-7.0) % Baso % (Auto) 0.3 (0.0-1.5) % Neut # (Auto) 3.5 (1.4-5.7) K/uL Lymph # (Auto) 2.6 H (0.6-2.4) K/uL [place] # (Auto) 0.4 (0.0-0.8) K/uL Eos # (Auto) 0.1 (0.0-0.7) K/uL Baso # (Auto) 0.0 (0.0-0.1) K/uL Nucleated RBC % 0.0 /100WBC Nucleated RBCs # 0 K/uL Sodium 139 (136-145) mmol/L Potassium 3.3 L (3.5-5.1) mmol/L Chloride 109 H (98-107) mmol/L Carbon Dioxide 21.4 (21.0-32.0) mmol/L BUN 17 (7.0-18.0) mg/dL Creatinine 0.7 (0.6-1.0) mg/dL Est Cr Clr Drug Dosing 69.06 mL/min Estimated GFR (MDRD) > 60.0 ml/min Glucose 91 (74-106) mg/dL Calcium 6.7 L (8.5-10.1) mg/dL Magnesium (1.8-2.4) mg/dL Urine Color Urine Appearance Urine pH (5.0-8.0) Ur Specific [place] (1.001-1.035) Urine Protein (NEGATIVE) mg/dL Urine Glucose (UA) (NEGATIVE) mg/dL Urine Ketones (NEGATIVE) mg/dL Urine Occult Blood (NEGATIVE) Urine Nitrite (NEGATIVE) Urine Bilirubin (NEGATIVE) Urine Urobilinogen (<2.0) EU/dL Ur Leukocyte Esterase (NEGATIVE) Urine RBC (0-2/HPF) Urine WBC (0-5/HPF) Ur Epithelial Cells (NONE-FEW) Urine Bacteria (NEGATIVE) Urine Mucus (NONE-MOD) Med Orders - Current: Current Medications Enoxaparin Sodium (Lovenox) 40 mg SUBCUT Q24H [facility] Last Admin: 09/28/18 18:06 Dose: 40 mg Ceftriaxone Sodium/Dextrose 1 (gm/ Premix) 50 mls @ 100 mls/hr IV Q24H [facility] Last Admin: 09/29/18 09:57 Dose: 100 mls/hr Potassium Chloride/Sodium Chloride (Normal Saline With 40 Meq Kcl) 1,000 mls @ 150 mls/hr IV ASDIRECTED [facility] Stop: 09/29/18 16:24 Last Admin: 09/29/18 11:15 Dose: 150 mls/hr Ketorolac Tromethamine (Toradol) 30 mg IV Q6H PRN PRN Reason: Pain (moderate 4-6) Last Admin: 09/28/18 22:17 Dose: 30 mg Ondansetron HCl (Zofran) 4 mg IVPUSH Q4H PRN PRN Reason: Nausea Discontinued Medications Sodium Chloride (Normal Saline) 1,000 mls @ 999 mls/hr IV STAT ONE Stop: 09/28/18 13:22 Last Admin: 09/28/18 12:32 Dose: 999 mls/hr Sodium Chloride (Normal Saline) 1,000 mls @ 150 mls/hr IV STAT ONE Stop: 09/28/18 19:48 Last Admin: 09/28/18 14:50 Dose: 150 mls/hr Sodium Chloride (Normal Saline) 1,000 mls @ 150 mls/hr IV ASDIRECTED [facility] Last Admin: 09/29/18 04:52 Dose: 150 mls/hr Iopamidol (Isovue Multipack-370 (76%)) 60 ml IVPUSH ONETIME STA Stop: 09/28/18 13:36 Last Admin: 09/28/18 13:39 Dose: 60 ml Ketorolac Tromethamine (Toradol) 30 mg IVPUSH ONETIME ONE Stop: 09/28/18 13:02 Last Admin: 09/28/18 13:06 Dose: 30 mg Ondansetron HCl (Zofran) 4 mg IVPUSH ONETIME ONE Stop: 09/28/18 12:23 Last Admin: 09/28/18 12:32 Dose: 4 mg - Exam Quality Assessment: Supplemental Oxygen General: Alert, Oriented Lungs: Normal Respiratory Effort Cardiovascular: Regular Rate GI/Abdominal Exam: Soft, Non-Tender, No Distention, No Mass Extremities: Normal Inspection, Normal Range of Motion Consult PN Assessment/Plan Procedures: Procedures ASSAY OF LIPASE (10/11/14) BREAST TOMOSYNTHESIS BI (02/16/18) COMPLETE CBC AUTOMATED (02/26/15) COMPLETE CBC W/AUTO DIFF WBC (10/11/14) COMPREHEN METABOLIC PANEL (10/11/14) CULTURE OTHR SPECIMN AEROBIC (02/13/15) CYSTOSCOPY AND TREATMENT (02/26/15) EMERGENCY DEPT VISIT (03/11/16) EMERGENCY DEPT VISIT (10/11/14) EMERGENCY DEPT VISIT (04/26/14) FLUOROSCOPE EXAM EXTENSIVE (03/11/16) FLUOROSCOPY <1 HR PHYS/QHP (03/30/18) GAIT TRAINING THERAPY (03/11/16) KNEE ARTHROSCOPY/SURGERY (03/30/18) METABOLIC PANEL TOTAL CA (02/26/15) MICROBE SUSCEPTIBLE NATE (04/03/15) OT EVALUATION (06/12/14) PT EVALUATION (03/11/16) REMOVAL OF SUPPORT IMPLANT (03/30/18) ROUTINE VENIPUNCTURE (02/26/15) SCR MAMMO BI INCL CAD (02/16/18) SMEAR WET [place] SALINE/INK (02/13/15) THER/PROPH/DIAG INJ IV PUSH (03/11/16) THERAPEUTIC ACTIVITIES (03/11/16) TREAT LOWER LEG FRACTURE (03/11/16) TREATMENT OF ANKLE FRACTURE (03/11/16) TX/PRO/DX INJ NEW DRUG ADDON (03/11/16) TX/PRO/DX INJ SAME DRUG REPORTER (03/11/16) URINALYSIS AUTO W/SCOPE (10/11/14) URINE BACTERIA CULTURE (04/03/15) URINE CULTURE/COLONY COUNT (04/03/15) X-RAY EXAM KNEE 4 OR MORE (03/01/18) X-RAY EXAM OF ABDOMEN (10/11/14) X-RAY EXAM OF ANKLE (04/27/17) X-RAY EXAM OF FOREARM (04/26/14) X-RAY EXAM OF LOWER LEG (03/01/18) X-RAY EXAM OF WRIST (06/05/14) X-RAY EXAM OF WRIST (05/01/14) (1) Small bowel obstruction SNOMED Code(s): 465042259 Code(s): K56.609 - UNSP INTESTNL OBST, UNSP TO PARTIAL VERSUS COMPLETE OBST Current Visit: Yes Problem List Initiated/Reviewed/Updated: Yes My Orders Last 24 Hours: Patients diet can be advanced as tolerated. If she is able to return to a regular diet and is discharged can come back to see me in clinic in 2 weeks for follow up. Will discuss colonoscopy at that time. Call with any concerns or questions.
[2018-09-29] MEDS: Enoxaparin 40 MG/0.4 ML Syringe SUBCUT SCH (15:37)
[2018-09-29 16:23] VITALS: BP 89/57
--- NOTE | 2018-09-29 16:55 | PCM.DCSUM1 ---
<Peggy DeviKulwinder - Last Filed: 09/29/18 16:45> Discharge Summary - Hospital Course Free Text/Narrative:: Radha Dickey is a 48 y/o female with extensive past surgical history who presented to the ER complaining of abdominal pain. CT abdomen showed a small bowel obstruction. She was hydrated with IV fluids and her pain was controlled. General surgery was consulted and recommended IV hydration and bowel rest. She was started on ceftriaxone to treat her UTI. She was able to tolerate clear liquid diet and her abdominal pain had resolved. She was discharged home with cefdinir and follow-up with Dr. Dyer as outpatient. - Discharge Data Discharge Date: 09/29/18 Discharge Disposition: Home, Self-Care 01 Condition: Good - Patient Summary/Data Consults: Consultations 09/28/18 15:59 Consult to Physician [CONS] Stat - Patient Instructions Diet: Usual Diet as Tolerated Activity: As Tolerated Notify Provider of: Fever, Increased Pain, Swelling and Redness, Nausea and/or Vomiting Other/Special Instructions: Advance diet as tolerated and stay hydrated. Follow- up with Dr. Dyer in approximately 2 weeks. - Discharge Plan *PRESCRIPTION DRUG MONITORING PROGRAM REVIEWED*: Not Applicable *COPY OF PRESCRIPTION DRUG MONITORING REPORT IN PATIENT MORIS: Not Applicable Prescriptions/Med Rec: Cefdinir [Omnicef] 300 mg PO BID 3 Days #6 cap Home Medications: Home Meds Estradiol [Vagifem] 10 mcg VAG ASDIRECTED 04/13/17 [History] Estrogens, Conjugated [Premarin] 0.625 mg PO DAILY 04/13/17 [History] Hydrocortisone [Hydrocortisone 2.5% Crm] 1 dose TOP ASDIRECTED PRN 04/13/17 [ History] Simvastatin [Zocor] 40 mg PO DAILY 04/13/17 [History] Phenazopyridine HCl [Pyridium] 200 mg PO ASDIRECTED PRN 03/25/18 [History] hydrOXYzine pamoate [Hydroxyzine Pamoate] 50 mg PO BEDTIME PRN 03/25/18 [History ] hydroCHLOROthiazide [Hydrochlorothiazide] 25 mg PO DAILY 03/25/18 [History] Acetaminophen/HYDROcodone [[place] 325-5 MG] 1 - 2 tab PO Q4H PRN #60 tablet 03/30 [Rx] Cefdinir [Omnicef] 300 mg PO BID 3 Days #6 cap 09/29/18 [Rx] Patient Handouts: Cefdinir capsules, Small Bowel Obstruction, [id number], Dehydration, Adult, [id number] Referrals: Juanita Dyer MD [Physician] - 10/14/18 10:00 am - Discharge Summary/Plan Comment DC Time >30 min.: No - Patient Data Vitals - Most Recent: Last Vital Signs Temp 36.5 C 09/29/18 16:00 Pulse 75 09/29/18 16:00 Resp 16 09/29/18 16:00 BP 89/57 L 09/29/18 16:00 Pulse Ox 96 09/29/18 16:00 Weight - Most Recent: 56.245 kg I&O - Last 24 hours: Intake & Output 09/29/18 09/29/18 09/29/18 06:59 14:59 22:59 Intake Total 870 2284 Output Total 300 500 Balance 570 1784 Lab Results - Last 24 hrs: Laboratory Results - last 24 hr 09/29/18 09/29/18 09/29/18 Range/Units 00:36 05:23 05:23 WBC 6.63 (4.0-11.0) K/uL RBC 3.67 L (4.30-5.90) M/uL Hgb 11.1 L (12.0-16.0) g/dL Hct 34.0 L (36.0-46.0) % MCV 92.6 (80.0-98.0) fL MCH 30.2 (27.0-32.0) pg MCHC 32.6 (31.0-37.0) g/dL RDW Std Deviation 49.0 (28.0-62.0) fl RDW Coeff of Kelvin 14 (11.0-15.0) % Plt Count 366 (150-400) K/uL MPV 9.40 (7.40-12.00) fL Neut % (Auto) 53.2 (48.0-80.0) % Lymph % (Auto) 38.9 (16.0-40.0) % [place] % (Auto) 6.5 (0.0-15.0) % Eos % (Auto) 1.1 (0.0-7.0) % Baso % (Auto) 0.3 (0.0-1.5) % Neut # (Auto) 3.5 (1.4-5.7) K/uL Lymph # (Auto) 2.6 H (0.6-2.4) K/uL [place] # (Auto) 0.4 (0.0-0.8) K/uL Eos # (Auto) 0.1 (0.0-0.7) K/uL Baso # (Auto) 0.0 (0.0-0.1) K/uL Nucleated RBC % 0.0 /100WBC Nucleated RBCs # 0 K/uL Sodium 139 (136-145) mmol/L Potassium 3.3 L (3.5-5.1) mmol/L Chloride 109 H (98-107) mmol/L Carbon Dioxide 21.4 (21.0-32.0) mmol/L BUN 17 (7.0-18.0) mg/dL Creatinine 0.7 (0.6-1.0) mg/dL Est Cr Clr Drug Dosing 69.06 mL/min Estimated GFR (MDRD) > 60.0 ml/min Glucose 91 (74-106) mg/dL Calcium 6.7 L (8.5-10.1) mg/dL Urine Color YELLOW Urine Appearance CLEAR Urine pH 6.0 (5.0-8.0) Ur Specific [place] >= 1.030 (1.001-1.035) Urine Protein TRACE H (NEGATIVE) mg/dL Urine Glucose (UA) NEGATIVE (NEGATIVE) mg/dL Urine Ketones 40 H (NEGATIVE) mg/dL Urine Occult Blood NEGATIVE (NEGATIVE) Urine Nitrite NEGATIVE (NEGATIVE) Urine Bilirubin MODERATE H (NEGATIVE) Urine Urobilinogen 0.2 (<2.0) EU/dL Ur Leukocyte Esterase NEGATIVE (NEGATIVE) Urine RBC 0-2 (0-2/HPF) Urine WBC 25-30 (0-5/HPF) Ur Epithelial Cells MANY (NONE-FEW) Urine Bacteria FEW (NEGATIVE) Urine Mucus MODERATE (NONE-MOD) Med Orders - Current: Current Medications Enoxaparin Sodium (Lovenox) 40 mg SUBCUT Q24H [facility] Last Admin: 09/29/18 15:37 Dose: 40 mg Ceftriaxone Sodium/Dextrose 1 (gm/ Premix) 50 mls @ 100 mls/hr IV Q24H [facility] Last Admin: 09/29/18 09:57 Dose: 100 mls/hr Ketorolac Tromethamine (Toradol) 30 mg IV Q6H PRN PRN Reason: Pain (moderate 4-6) Last Admin: 09/28/18 22:17 Dose: 30 mg Ondansetron HCl (Zofran) 4 mg IVPUSH Q4H PRN PRN Reason: Nausea Discontinued Medications Sodium Chloride (Normal Saline) 1,000 mls @ 999 mls/hr IV STAT ONE Stop: 09/28/18 13:22 Last Admin: 09/28/18 12:32 Dose: 999 mls/hr Sodium Chloride (Normal Saline) 1,000 mls @ 150 mls/hr IV STAT ONE Stop: 09/28/18 19:48 Last Admin: 09/28/18 14:50 Dose: 150 mls/hr Sodium Chloride (Normal Saline) 1,000 mls @ 150 mls/hr IV ASDIRECTED [facility] Last Admin: 09/29/18 04:52 Dose: 150 mls/hr Potassium Chloride/Sodium Chloride (Normal Saline With 40 Meq Kcl) 1,000 mls @ 150 mls/hr IV ASDIRECTED [facility] Stop: 09/29/18 16:24 Last Admin: 09/29/18 11:15 Dose: 150 mls/hr Iopamidol (Isovue Multipack-370 (76%)) 60 ml IVPUSH ONETIME STA Stop: 09/28/18 13:36 Last Admin: 09/28/18 13:39 Dose: 60 ml Ketorolac Tromethamine (Toradol) 30 mg IVPUSH ONETIME ONE Stop: 09/28/18 13:02 Last Admin: 09/28/18 13:06 Dose: 30 mg Ondansetron HCl (Zofran) 4 mg IVPUSH ONETIME ONE Stop: 09/28/18 12:23 Last Admin: 09/28/18 12:32 Dose: 4 mg <Robles Landin - Last Filed: 10/02/18 18:59> Discharge Summary - Patient Summary/Data Consults: Consultations 09/28/18 15:59 Consult to Physician [CONS] Stat - Patient Data Vitals - Most Recent: Last Vital Signs Temp 36.5 C 09/29/18 16:00 Pulse 75 09/29/18 16:00 Resp 16 09/29/18 16:00 BP 89/57 L 09/29/18 16:00 Pulse Ox 96 09/29/18 16:00 Med Orders - Current: Current Medications Discontinued Medications Enoxaparin Sodium (Lovenox) 40 mg SUBCUT Q24H [facility] Last Admin: 09/29/18 15:37 Dose: 40 mg Sodium Chloride (Normal Saline) 1,000 mls @ 999 mls/hr IV STAT ONE Stop: 09/28/18 13:22 Last Admin: 09/28/18 12:32 Dose: 999 mls/hr Sodium Chloride (Normal Saline) 1,000 mls @ 150 mls/hr IV STAT ONE Stop: 09/28/18 19:48 Last Admin: 09/28/18 14:50 Dose: 150 mls/hr Sodium Chloride (Normal Saline) 1,000 mls @ 150 mls/hr IV ASDIRECTED [facility] Last Admin: 09/29/18 04:52 Dose: 150 mls/hr Ceftriaxone Sodium/Dextrose 1 (gm/ Premix) 50 mls @ 100 mls/hr IV Q24H [facility] Last Admin: 09/29/18 09:57 Dose: 100 mls/hr Potassium Chloride/Sodium Chloride (Normal Saline With 40 Meq Kcl) 1,000 mls @ 150 mls/hr IV ASDIRECTED [facility] Stop: 09/29/18 16:24 Last Admin: 09/29/18 11:15 Dose: 150 mls/hr Iopamidol (Isovue Multipack-370 (76%)) 60 ml IVPUSH ONETIME STA Stop: 09/28/18 13:36 Last Admin: 09/28/18 13:39 Dose: 60 ml Ketorolac Tromethamine (Toradol) 30 mg IVPUSH ONETIME ONE Stop: 09/28/18 13:02 Last Admin: 09/28/18 13:06 Dose: 30 mg Ketorolac Tromethamine (Toradol) 30 mg IV Q6H PRN PRN Reason: Pain (moderate 4-6) Last Admin: 09/28/18 22:17 Dose: 30 mg Ondansetron HCl (Zofran) 4 mg IVPUSH ONETIME ONE Stop: 09/28/18 12:23 Last Admin: 09/28/18 12:32 Dose: 4 mg Ondansetron HCl (Zofran) 4 mg IVPUSH Q4H PRN PRN Reason: Nausea - Free Text/Narrative Note: I have examined the patient. I have discussed findings and treatment plan with the resident. I agree with the assessment and plan outlined in the following resident's note.
== END 2018-09-29 17:15 | disposition home or self-care (01) ==
LOC: MW.ED 12:15 → MW.MS 16:13
PROVIDERS: ADMIT Internal Medicine; ATTEND Internal Medicine
DX: K56.609 Unspecified intestinal obstruction, unspecified as to partial versus complete obstruction (principal); D72.829 Elevated white blood cell count, unspecified; D75.1 Secondary polycythemia; E83.52 Hypercalcemia; N17.9 Acute kidney failure, unspecified; I10 Essential (primary) hypertension; E78.00 Pure hypercholesterolemia, unspecified; Z79.890 Hormone replacement therapy; Z79.899 Other long term (current) drug therapy; Z98.890 Other specified postprocedural states
CPT/HCPCS: 36415; 74176; 80048; 80053; 81001; 81003; 83690; 83735; 85025; 87086; 96361; 96365; 96372; 96375; 96376; 99285; A4217; G0378; J0696; J1650; J1885; J2405; J3480; J7040; Q9967; 96374; 99284

== ENCOUNTER 2018-10-30 15:38 | Emergency (ER) | payer BC, OTHER ==
--- NOTE | 2018-10-30 16:17 | EDM.PDOC ---
ED HPI GENERAL MEDICAL PROBLEM - General Chief Complaint: Lower Extremity Injury/Pain Stated Complaint: SPRAINED LFT ANKLE Time Seen by Provider: 10/30/18 15:44 Source of Information: Reports: Patient History Limitations: Reports: No Limitations - History of Present Illness INITIAL COMMENTS - FREE TEXT/NARRATIVE: HISTORY AND PHYSICAL: History of present illness: Patient is a 48-year-old female presents to the ED today with concern of left ankle injury that occurred this morning. Patient states she was out camping and had stepped out of her camper and did not have her foot properly placed and rolled her ankle. Patient states she has not been able to walk on her foot since it has occurred. Patient states she's been icing it all morning since the incident occurred. Patient denies any other symptoms at this time. Patient denies fever, chills, chest pain, shortness of breath, or cough. Denies headache, neck stiff ness, change in vision, syncope, or near syncope. Denies nausea, vomiting, abdominal pain, diarrhea, constipation, or dysuria. Has not noted any blood in urine or stool. Patient has been eating and drinking appropriately. Review of systems: As per history of present illness and below otherwise all systems reviewed and negative. Past medical history: As per history of present illness and as reviewed below otherwise noncontributory. Surgical history: As per history of present illness and as reviewed below otherwise noncontributory. Social history: See social history for further information Family history: As per history of present illness and as reviewed below otherwise noncontributory. Physical exam: General: Patient is alert, oriented, and in no acute distress. Patient sitting comfortably on exam table. HEENT: Atraumatic, normocephalic, pupils equal and reactive bilaterally, negative for conjunctival pallor or scleral icterus, mucous membranes moist, TMs normal bilaterally, throat clear, neck supple, nontender, trachea midline. No drooling or trismus noted. No meningeal signs. No hot potato voice noted. Lungs: Clear to auscultation, breath sounds equal bilaterally, chest nontender. Heart: S1S2, regular rate and rhythm without overt murmur Abdomen: Soft, nondistended, nontender. Negative for masses or hepatosplenomegaly. Negative for costovertebral tenderness. Pelvis: Stable nontender. Genitourinary: Deferred. Rectal: Deferred. Skin: Intact, warm, dry. No lesions or rashes noted. Extremities: Negative for cords or calf pain. Neurovascular unremarkable. Patient does have limited range of motion of the left ankle due to pain. Pain with palpation of the lateral malleolus. Patient does have full range of motion of all digits of the left lower extremity and knee. Dorsalis pedis and posterior tibial pulses are grossly intact with capillary refill less than 2 seconds. Neuro: Awake, alert, oriented. Cranial nerves II through XII unremarkable. Cerebellum unremarkable. Motor and sensory unremarkable throughout. Exam nonfocal. Notes: Discussed the importance for follow-up with a primary care provider or orthopedic provider. Voices understanding and is agreeable to plan of care. Denies any further questions or concerns at this time. Diagnostics: Ankle XR Therapeutics: Boot with crutches Prescription: Diclofenac Impression: Left ankle injury Plan: 1. Rest, ice, elevate the affected extremity. You can apply ice 15 minutes on, 15 minutes off. 2. Tylenol and/or Ibuprofen as directed for pain management or discomfort. Take medication as prescribed. 3. Follow up with the Orthopedic provider or primary care provider as discussed. Return to the ED as needed and as discussed. Definitive disposition and diagnosis as appropriate pending reevaluation and review of above. Left Ankle Pain Score (Numeric/FACES): 5 - Related Data Allergies Allergy/AdvReac Type Severity Reaction Status Date / Time No Known Allergies Allergy Verified 10/30/18 16:16 Home Meds: Home Meds Estradiol [Vagifem] 10 mcg VAG ASDIRECTED 04/13/17 [History] Estrogens, Conjugated [Premarin] 0.625 mg PO DAILY 04/13/17 [History] Hydrocortisone [Hydrocortisone 2.5% Crm] 1 dose TOP ASDIRECTED PRN 04/13/17 [ History] Simvastatin [Zocor] 40 mg PO DAILY 04/13/17 [History] Phenazopyridine HCl [Pyridium] 200 mg PO ASDIRECTED PRN 03/25/18 [History] hydrOXYzine pamoate [Hydroxyzine Pamoate] 50 mg PO BEDTIME PRN 03/25/18 [History ] hydroCHLOROthiazide [Hydrochlorothiazide] 25 mg PO DAILY 03/25/18 [History] Acetaminophen/HYDROcodone [[place] 325-5 MG] 1 - 2 tab PO Q4H PRN #60 tablet 03/30 [Rx] Cefdinir [Omnicef] 300 mg PO BID 3 Days #6 cap 09/29/18 [Rx] Diclofenac Sodium [Voltaren] 75 mg PO BIDMEALS PRN #14 tab.cr 10/30/18 [Rx] Past Medical History HEENT History: Reports: Other (See Below) Other HEENT History: wears glasses, has 3 upper dental implants Cardiovascular History: Reports: High Cholesterol, Hypertension Respiratory History: Reports: None Gastrointestinal History: Reports: Bowel Obstruction Genitourinary History: Reports: Other (See Below) Other Genitourinary History: kidney infection [employer]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: Musculoskeletal History: Reports: Fracture Other Musculoskeletal History: left arm Neurological History: Reports: None Psychiatric History: Reports: None Endocrine/Metabolic History: Reports: None Hematologic History: Reports: None Immunologic History: Reports: None Oncologic (Cancer) History: Reports: None Dermatologic History: Reports: None - Infectious Disease History Infectious Disease History: Reports: None - Past Surgical History Head Surgeries/Procedures: Reports: None HEENT Surgical History: Reports: Tonsillectomy GI Surgical History: Reports: Appendectomy, Cholecystectomy, Colon Other GI Surgeries/Procedures: colon resection for bowel obstruction Female Surgical History: Reports: Section, Hysterectomy Other Female Surgeries/Procedures: hx multiple laparoscopies; hysterectomy 2008 Musculoskeletal Surgical History: Reports: ORIF Other Musculoskeletal Surgeries/Procedures:: right ankle (has hardware) Social & Family History - Family History Family Medical History: Noncontributory HEENT: Reports: Otitis Media Cardiac: Reports: [place] OBGYN: Reports: Endometriosis Musculoskeletal: Reports: Osteoporosis Endocrine/Metabolic: Reports: Osteoporosis, Other (See Below) Other Endocrine/Metabolic Family History: DM type unknown Oncologic: Reports: Breast, Ovarian Other Oncologic Family History: throat - Caffeine Use Caffeine Use: Reports: Coffee, Soda Review of Systems - Review of Systems Review Of Systems: ROS reveals no pertinent complaints other than HPI. ED EXAM, GENERAL - Physical Exam Exam: See Below (See dictation) Course - Vital Signs Last Recorded V/S: Last Vital Signs Temp 35.9 C 10/30/18 16:17 Pulse 81 10/30/18 16:17 Resp 18 10/30/18 16:17 BP 105/65 10/30/18 16:17 Pulse Ox 96 10/30/18 16:17 - Orders/Labs/Meds Orders: Active Orders 24 hr Category Date Time Status DME for Discharge [COMM] Stat Oth 10/30/18 16:22 Ordered Departure - Departure Time of Disposition: 16:23 Disposition: Home, Self-Care 01 Clinical Impression: Ankle injury Qualifiers: Encounter type: initial encounter Laterality: left Qualified Code(s): S99.912A - Unspecified injury of left ankle, initial encounter - Discharge Information Prescriptions: Diclofenac Sodium [Voltaren] 75 mg PO BIDMEALS PRN #14 tab.cr PRN Reason: Pain Referrals: Nallely Lebron [employer] ADVISOR [Primary Care Provider] - Forms: ED Department Discharge Additional Instructions: The following information is given to patients seen in the emergency department who are being discharged to home. This information is to outline your options for follow-up care. We provide all patients seen in our emergency department with a follow-up referral. The need for follow-up, as well as the timing and circumstances, are variable depending upon the specifics of your emergency department visit. If you don't have a primary care physician on staff, we will provide you with a referral. We always advise you to contact your personal physician following an emergency department visit to inform them of the circumstance of the visit and for follow-up with them and/or the need for any referrals to a consulting specialist. The emergency department will also refer you to a specialist when appropriate. This referral assures that you have the opportunity for follow-up care with a specialist. All of these measure are taken in an effort to provide you with optimal care, which includes your follow-up. Under all circumstances we always encourage you to contact your private physician who remains a resource for coordinating your care. When calling for follow-up care, please make the office aware that this follow-up is from your recent emergency room visit. If for any reason you are refused follow-up, please contact the [facility] Emergency Department at and asked to speak to the emergency department charge nurse. [facility] [address] [place] [id number] [id number] [facility] [address], [address] [place] [address] 1. Rest, ice, elevate the affected extremity. You can apply ice 15 minutes on, 15 minutes off. 2. Tylenol and/or Ibuprofen as directed for pain management or discomfort. Take medication as prescribed. 3. Follow up with the Orthopedic provider or primary care provider as discussed. Return to the ED as needed and as discussed. - My Orders Last 24 Hours: My Active Orders 10/30/18 16:22 DME for Discharge [COMM] Stat - Assessment/Plan Last 24 Hours: My Active Orders 10/30/18 16:22 DME for Discharge [COMM] Stat
[2018-10-30 16:20] VITALS: BP 105/65
--- NOTE | 2018-10-30 16:20 | CR ---
INDICATION: Pain following an injury. TECHNIQUE: Three views left ankle. FINDINGS: No acute fracture, dislocation, or other bony abnormality. Soft tissue swelling about the lateral malleolus. IMPRESSION: Left ankle is negative for fracture. Lateral soft tissue swelling. Dictated by Priyanka Fry MD @ Oct 30 2018 4:18PM Signed by Dr. Priyanka Fry @ Oct 30 2018 4:18PM
== END 2018-10-30 16:41 | disposition home or self-care (01) ==
LOC: MW.ED 15:38
DX: S99.912A Unspecified injury of left ankle, initial encounter (principal); I10 Essential (primary) hypertension; Z90.710 Acquired absence of both cervix and uterus; Z79.899 Other long term (current) drug therapy; Z98.890 Other specified postprocedural states; Z90.49 Acquired absence of other specified parts of digestive tract; X50.1XXA Overexertion from prolonged static or awkward postures, initial encounter
CPT/HCPCS: 73610-26-LT; 73610-LT; 99283-25

== ENCOUNTER 2021-01-28 06:23 | Day surgery (SDC) | payer BC, OTHER ==
[~2021-01-28 06:23] MED LIST changes: +Sodium Chloride 0.9% 10 ML SDV IV PRN; +Sodium Chloride 0.9% 10 ML Syringe FLUSH PRN; +Sodium Chloride 0.9% 2.5 ML Syringe FLUSH PRN
--- NOTE | 2021-01-28 07:08 | PCM.PREANE ---
Preanesthetic Assessment - Procedure Proposed Procedure: Colonoscopy - Anesthesia/Transfusion/Family Hx Anesthesia History: Prior Anesthesia Without Reaction Family History of Anesthesia Reaction: No Transfusion History: No Prior Transfusion(s) Intubation History: Unknown - Review of Systems General: No Symptoms Pulmonary: No Symptoms Cardiovascular: No Symptoms (HTN) Gastrointestinal: No Symptoms Neurological: No Symptoms Other: Reports: None - Physical Assessment NPO Status Date: 01/26/21 NPO Status Time: 20:00 (Solids, >8Hr Liq) Vital Signs: Last Vital Signs Temp 97.5 F 01/28/21 06:37 Pulse 73 01/28/21 06:37 Resp 16 01/28/21 06:37 BP 120/68 01/28/21 06:37 Pulse Ox 94 L 01/28/21 06:37 Height: 4 ft 10 in Weight: 61.689 kg ASA Class: 2 Mental Status: Alert & Oriented x3 Airway Class: Mallampati = 2 Dentition: Reports: Normal Dentition Thyro-Mental Finger Breadths: 3 Mouth Opening Finger Breadths: 3 ROM/Head Extension: Full Lungs: Clear to Auscultation, Normal Respiratory Effort Cardiovascular: Regular Rate, Regular Rhythm - Allergies Allergies/Adverse Reactions: Allergies Allergy/AdvReac Type Severity Reaction Status Date / Time No Known Allergies Allergy Verified 01/23/21 09:31 - Acknowledgements Anesthesia Type Planned: General Anesthesia Pt an Appropriate Candidate for the Planned Anesthesia: Yes Alternatives and Risks of Anesthesia Discussed w Pt/Guardian: Yes Pt/Guardian Understands and Agrees with Anesthesia Plan: Yes PreAnesthesia Questionnaire HEENT History: Reports: Other (See Below) Other HEENT History: wears glasses, has 3 upper dental implants Cardiovascular History: Reports: High Cholesterol, Hypertension Respiratory History: Reports: None Other Respiratory History: SOB on exertion since she had Covid Gastrointestinal History: Reports: Bowel Obstruction Other Gastrointestinal History: current BRBPR, hx of SBO's Genitourinary History: Reports: Other (See Below) Other Genitourinary History: kidney infection [employer]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: Musculoskeletal History: Reports: Fracture Other Musculoskeletal History: left arm Neurological History: Reports: None Other Neuro History: hx of motion sickness, syncopal episodes Psychiatric History: Reports: None Endocrine/Metabolic History: Reports: None Hematologic History: Reports: None Immunologic History: Reports: None Oncologic (Cancer) History: Reports: None Dermatologic History: Reports: None - Infectious Disease History Infectious Disease History: Reports: None - Past Surgical History Head Surgeries/Procedures: Reports: None HEENT Surgical History: Reports: Tonsillectomy Other HEENT Surgeries/Procedures: has 3 upper dental implants Cardiovascular Surgical History: Reports: None GI Surgical History: Reports: Appendectomy, Cholecystectomy, Colon Other GI Surgeries/Procedures: colon resection for bowel obstruction Female Surgical History: Reports: Section, Hysterectomy Other Female Surgeries/Procedures: hx multiple laparoscopies; hysterectomy 2008 Endocrine Surgical History: Reports: None Neurological Surgical History: Reports: None Musculoskeletal Surgical History: Reports: ORIF Other Musculoskeletal Surgeries/Procedures:: right ankle (has hardware) Oncologic Surgical History: Reports: Other (See Below) Other Oncologic Surgeries/Procedures: Hysterectomy Dermatological Surgical History: Reports: None - SUBSTANCE USE Tobacco Use Within Last Twelve Months: No Recreational Drug Use History: No - HOME MEDS Home Medications: Home Meds estradioL [Vagifem] 10 mcg VAG ASDIRECTED 04/13/17 [History] Phenazopyridine HCl [Pyridium] 200 mg PO ASDIRECTED PRN 03/25/18 [History] hydroCHLOROthiazide [Hydrochlorothiazide] 25 mg PO DAILY 03/25/18 [History] Cyanocobalamin (Vitamin B12) [Vitamin B12] 100 mcg PO DAILY 01/23/21 [History] Escitalopram Oxalate [Lexapro] 30 mg PO DAILY 01/23/21 [History] Estrogens, Conjugated [Premarin] 0.625 mg PO DAILY 01/23/21 [History] Fluconazole 150 mg PO DAILY PRN 01/23/21 [History] lisinopriL [Lisinopril] 10 mg PO DAILY 01/23/21 [History] - CURRENT (IN HOUSE) MEDS Current Meds: Current Medications Lactated Ringer's (Ringers, Lactated) 1,000 mls @ 125 mls/hr IV ASDIRECTED [facility]ENE[facility]ER Last Admin: 01/28/21 06:48 Dose: 125 mls/hr Documented by: Sodium Chloride (Sodium Chloride 0.9% 10 Ml Syringe) 10 ml FLUSH ASDIRECTED PRN PRN Reason: Keep Vein Open Sodium Chloride (Sodium Chloride 0.9% 2.5 Ml Syringe) 2.5 ml FLUSH ASDIRECTED PRN PRN Reason: Keep Vein Open Sodium Chloride (Sodium Chloride 0.9% 10 Ml Syringe) 10 ml FLUSH ASDIRECTED PRN PRN Reason: Keep Vein Open Sodium Chloride (Sodium Chloride 0.9% 2.5 Ml Syringe) 2.5 ml FLUSH ASDIRECTED PRN PRN Reason: Keep Vein Open Sodium Chloride (Sodium Chloride 0.9% 10 Ml Sdv) 10 ml IV ASDIRECTED PRN PRN Reason: IV Use
[2021-01-28] MEDS ORDERED: Propofol 200 MG/20 ML SDV ONE (07:15)
[2021-01-28] MEDS ORDERED: Midazolam 1 MG/ML 2 ML SDV ONE (07:16)
--- NOTE | 2021-01-28 10:01 | PCM.POSTAN ---
POST ANESTHESIA ASSESSMENT - MENTAL STATUS Mental Status: Alert, Oriented - VITAL SIGNS Vital Signs: Last Vital Signs Temp 97.5 F 01/28/21 06:37 Pulse 73 01/28/21 06:37 Resp 16 01/28/21 06:37 BP 120/68 01/28/21 06:37 Pulse Ox 94 L 01/28/21 06:37 - RESPIRATORY Respiratory Status: Respiratory Rate WNL, Airway Patent, O2 Saturation Stable - CARDIOVASCULAR CV Status: Pulse Rate WNL, Blood Pressure Stable - GASTROINTESTINAL GI Status: No Symptoms - PAIN Pain Score: 0 - POST OP HYDRATION Hydration Status: Adequate & Stable
--- NOTE | 2021-01-28 10:04 | PCM.OPNOTE ---
- General Post-Op/Procedure Note Date of Surgery/Procedure: 01/28/21 Operative Procedure(s): Diagnostic colonoscopy with biopsy Findings: Normal appearing colonic mucosa. Sigmoid colon biopsies. Normal appearing hemorrhoidal tissue. Pre Op Diagnosis: Bright red bleeding per rectum Post-Op Diagnosis: same Anesthesia Technique: MAC Primary Surgeon: Juanita Dyer Condition: Good
--- NOTE | 2021-01-28 10:07 | PCM48HPAN ---
Post Anesthesia Note - EVALUATION WITHIN 48HRS OF ANESTHETIC Vital Signs in Normal Range: Yes Patient Participated in Evaluation: Yes Respiratory Function Stable: Yes Airway Patent: Yes Cardiovascular Function Stable: Yes Hydration Status Stable: Yes Pain Control Satisfactory: Yes Nausea and Vomiting Control Satisfactory: Yes Mental Status Recovered: Yes Vital Signs: Last Vital Signs Temp 97.5 F 01/28/21 06:37 Pulse 73 01/28/21 06:37 Resp 16 01/28/21 06:37 BP 120/68 01/28/21 06:37 Pulse Ox 94 L 01/28/21 06:37 - COMMENTS/OBSERVATIONS Free Text/Narrative:: Pt doing well post-op. VSS. No apparent anesthetic complications. Dr. Enrike Aden
[2021-01-28 10:11] VITALS: PULSE 66
[2021-01-28 10:23] VITALS: BP 91/54
--- NOTE | 2021-01-28 13:00 | OR ---
SURGEON: JUANITA DYER MD DATE OF PROCEDURE: 01/28/2021 PREOPERATIVE DIAGNOSIS: Bright red bleeding per rectum. POSTOPERATIVE DIAGNOSIS: Bright red bleeding per rectum. PROCEDURE PERFORMED: Diagnostic colonoscopy with biopsies. PRIMARY SURGEON: Juanita Dyer MD ANESTHESIA: MAC. INSTRUMENT USED: Olympus colonoscope. EXTENT OF EXAM: To the cecum. PREPARATION: Good. LIMITATIONS: None. INDICATIONS FOR EXAMINATION: The patient is a 51-year-old female who presented to clinic with complaints of bright red bleeding per rectum. The patient and I discussed the need for diagnostic colonoscopy. I explained the procedure, expected perioperative course, and the risks. She verbalized understanding and wishes to proceed. PROCEDURE IN DETAIL: The patient was brought to the endoscopy suite and placed in the left lateral decubitus position. A time-out was completed verifying the patient's name, age, date of , allergies, and procedure to be performed. Monitored anesthesia care was induced and continuous oxygen was provided via face mask throughout the procedure. After adequate sedation was achieved, a digital rectal exam was performed. This exam was within normal limits. A well-lubricated colonoscope was inserted in the rectum and advanced under direct visualization to the level of the cecum. The cecum was identified by both visual and anatomic landmarks. A photograph was taken of the cecal cap as well as with the scope retroflexed within the cecum. The scope was then fully withdrawn while examining the color, texture, anatomy, and integrity of the mucosa from the cecum to the anal canal. The mucosa all appeared normal. There was no evidence of ulceration or inflammation. I saw no stigmata of bleeding. Random biopsies were taken of the sigmoid colon and sent to pathology for histologic review. The scope was then brought into the rectum and retroflexed to allow visualization of the anal canal opening. This appeared normal. The hemorrhoidal tissue was not particularly enlarged or abnormal appearing. The scope was then straightened out and fully withdrawn. The cecum to anus time was 8 minutes. The patient tolerated the procedure well and was transferred to the PACU in stable condition. ENDOSCOPIC DIAGNOSIS: Bright red bleeding per rectum. RECOMMENDATIONS: Follow up in clinic in 2 weeks. STEVEN BARFIELD /[id number]
== END 2021-01-28 11:06 | disposition home or self-care (01) ==
LOC: MW.SDS 06:23
PROVIDERS: ATTEND Surgery
DX: K52.9 Noninfective gastroenteritis and colitis, unspecified (principal); K62.5 Hemorrhage of anus and rectum; R06.02 Shortness of breath; K56.609 Unspecified intestinal obstruction, unspecified as to partial versus complete obstruction; I12.9 Hypertensive chronic kidney disease with stage 1 through stage 4 chronic kidney disease, or unspecified chronic kidney disease; N18.9 Chronic kidney disease, unspecified; E78.00 Pure hypercholesterolemia, unspecified; R39.89 Other symptoms and signs involving the genitourinary system; Z98.890 Other specified postprocedural states; Z79.899 Other long term (current) drug therapy; Z90.49 Acquired absence of other specified parts of digestive tract
CPT/HCPCS: 45380; 88305; J2250; J2704; J7120; 00811

== ENCOUNTER 2022-12-26 17:50 | Emergency (ER) | payer BC ==
[2022-12-26 18:19] VITALS: BP 107/68; PULSE 80
[2022-12-26 19:02] LABS: BASOPHILS PERCENT AUTO 0.6 % (0.0-1.5); EOSINOPHILS ABSOLUTE AUTO 0.2 K/uL (0.0-0.7); EOSINOPHILS PERCENT AUTO 2.8 % (0.0-7.0); HEMATOCRIT 40.1 % (36.0-46.0); HEMOGLOBIN 13.6 g/dL (12.0-16.0); LYMPHOCYTES ABSOLUTE AUTO 2.5 K/uL (0.6-2.4); LYMPHOCYTES PERCENT AUTO 34.7 % (16.0-40.0); MEAN CORPUSCULAR HEMOGLOBIN 30.8 pg (27.0-32.0); MEAN CORPUSCULAR HGB CONC 33.9 g/dL (31.0-37.0); MEAN CORPUSCULAR VOLUME 90.7 fL (80.0-98.0); MONOCYTES ABSOLUTE AUTO 0.6 K/uL (0.0-0.8); MONOCYTES PERCENT AUTO 8.4 % (0.0-15.0); NEUTROPHILS ABSOLUTE AUTO 3.9 K/uL (1.4-5.7); NEUTROPHILS PERCENT AUTO 53.5 % (48.0-80.0); NRBC ABSOLUTE 0 K/uL; PLATELET COUNT,PLT 542 K/uL (150-400); RED BLOOD CELL COUNT 4.42 M/uL (4.30-5.90); WHITE BLOOD CELL COUNT,WBC 7.27 K/uL (4.0-11.0)
[2022-12-26 19:26] LABS: A/G RATIO 0.8 (0.9-1.6); ALANINE AMINOTRANSFERASE,ALT 29 IU/L (14-63); ALBUMIN 2.9 g/dL (3.4-5.0); ALKALINE PHOSPHATASE 76 U/L (46-116); ASPARTATE AMNIOTRANSFERASE,AST 35 IU/L (15-37); BILIRUBIN TOTAL 0.2 mg/dL (0.2-1.0); BLOOD UREA NITROGEN,BUN 16 mg/dL (7.0-18.0); CALCIUM 8.7 mg/dL (8.5-10.1); CARBON DIOXIDE,CO2 30.8 mmol/L (21.0-32.0); CHLORIDE,CL 103 mmol/L (98-107); CREATININE 0.8 mg/dL (0.6-1.0); EST CRCL DRUG DOSING (CG) 57.74 mL/min; ESTIMATED GFR 88 mL/min (>60); GLUCOSE RANDOM 93 mg/dL (74-106); POTASSIUM,K 3.6 mmol/L (3.5-5.1); PROTEIN TOTAL,TP 6.4 g/dL (6.4-8.2); SODIUM,NA 140 mmol/L (136-145); TSH ULTRASENSITIVE 1.45 uIU/mL (0.36-3.74)
== END 2022-12-26 19:30 | disposition left against medical advice (07) ==
LOC: MW.ED 17:50
DX: R07.9 Chest pain, unspecified (principal)
CPT/HCPCS: 36415; 80053; 84443; 84484; 85025; 93005; 99285

== ENCOUNTER 2024-10-20 10:51 | Emergency (ER) | payer BC, OTHER ==
[2024-10-20 11:47] LABS: BASOPHILS ABSOLUTE AUTO 0.04 K/uL (0.00-0.20); BASOPHILS PERCENT AUTO 0.5 % (0.0-1.0); EOSINOPHILS ABSOLUTE AUTO 0.08 K/uL (0.00-0.45); HEMATOCRIT 43.5 % (37.0-47.0); HEMOGLOBIN 14.7 g/dL (12.0-16.0); IMMATURE GRAN ABSOLUTE AUTO 0.02 K/uL (0.00-0.05); IMMATURE GRAN PERCENT AUTO 0.2 % (0.0-0.4); LYMPHOCYTES ABSOLUTE AUTO 2.19 K/uL (1.00-4.80); MEAN CORPUSCULAR HEMOGLOBIN 30.6 pg (28.0-32.0); MEAN CORPUSCULAR HGB CONC 33.8 g/dL (32.0-36.0); MEAN CORPUSCULAR VOLUME 90.6 fL (83.0-99.0); MEAN PLATELET VOLUME 8.8 fL (9.4-12.3); MONOCYTES PERCENT AUTO 5.9 % (0.0-8.0); NEUTROPHILS ABSOLUTE AUTO 5.59 K/uL (1.80-7.70); NEUTROPHILS PERCENT AUTO 66.4 % (41.0-71.0); PLATELET COUNT,PLT 487 K/uL (150-400); WHITE BLOOD CELL COUNT,WBC 8.42 K/uL (3.9-11.3)
[2024-10-20] MEDS: Sodium Chloride 0.9% 1,000 ML IV ONE (11:55)
[2024-10-20] MEDS: Ondansetron 4 MG/2 ML SDV IVPUSH ONE (11:55)
[2024-10-20 12:05] LABS: INR 0.95 (0.86-1.11); PTT,PARTIAL THROMBOPLSTIN TIME 25.4 SEC (23.9-30.7)
[2024-10-20] MEDS: LORazepam 2 MG/ML SDV IVPUSH ONE (12:11)
[2024-10-20 12:20] LABS: A/G RATIO 1.2 (0.9-1.6); ALANINE AMINOTRANSFERASE,ALT 36 IU/L (14-63); ALBUMIN 3.5 g/dL (3.4-5.0); ALKALINE PHOSPHATASE 100 U/L (46-116); ASPARTATE AMNIOTRANSFERASE,AST 24 IU/L (15-37); BILIRUBIN TOTAL 0.5 mg/dL (0.2-1.0); BLOOD UREA NITROGEN,BUN 17 mg/dL (7.0-18.0); CALCIUM 9.1 mg/dL (8.5-10.1); CARBON DIOXIDE,CO2 27.2 mmol/L (21.0-32.0); CHLORIDE,CL 106 mmol/L (98-107); CREATININE 0.8 mg/dL (0.6-1.0); GLUCOSE RANDOM 85 mg/dL (74-106); LIPASE 54 U/L (16-77); MAGNESIUM 1.8 mg/dL (1.8-2.4); POTASSIUM,K 4.3 mmol/L (3.5-5.1); PROTEIN TOTAL,TP 6.5 g/dL (6.4-8.2); SODIUM,NA 139 mmol/L (136-145)
[2024-10-20 12:23] LABS: ESTIMATED GFR 86 mL/min (>60)
[2024-10-20 13:51] VITALS: BP 115/66; PULSE 91
== END 2024-10-20 13:50 | disposition home or self-care (01) ==
LOC: MW.ED 10:51
DX: F43.9 Reaction to severe stress, unspecified (principal); I10 Essential (primary) hypertension; Z86.16 Personal history of COVID-19; Z90.49 Acquired absence of other specified parts of digestive tract; Z90.710 Acquired absence of both cervix and uterus; Z79.899 Other long term (current) drug therapy; Z75.3 Unavailability and inaccessibility of health-care facilities
CPT/HCPCS: 36415; 71046; 80053; 82947; 83690; 83735; 84484; 85025; 85610; 85730; 93005; 96361; 96374; 96375; 99284; J2060; J2405; J7030; 93010